=== PATIENT | female | born 1945 | race Caucasian/White ===

== ENCOUNTER 2021-05-24 13:14 | Emergency (ER) | payer OTHER, BC ==
--- OUTSIDE RECORDS SUMMARY | 2021-05-24 13:18 | XMS REPORT | Continuity of Care Document ---
:1945 Author Organization [facility] t Address [address] [place] [address] Care Team Providers Name Role Phone MELODY Attending Clinician Unavailable MELODY Admitting Clinician Unavailable Payers Payer Name Policy Type Policy Number Effective Date Expiration Date S ource Problems Condition Condition Condition Status Onset Resolution Last Treating Co mments Source Name Details Category Date Date Treatment Clinician Date Hyperlipid Hyperlipid Problem Active [facility]) Asthma Asthma Problem [facility] neck neck Problem Active [facility]) Cholecyste Cholecyste Problem Active [facility] ctomy [facility]omy [facility]) Maintenanc Maintenanc Problem Active [facility] - gastric gastric Memoria band band l (LUF/LI V/SA) Hypertensi Hypertensi Problem Active [facility] ve ve [facility] disorder disorder Mem[facility] a l (LUF/LI V/SA) Diabetes Diabetes Problem [facility]) Allergies, Adverse Reactions, Alerts Allergy Allergy Status Severity Reaction(s) Onset Inactive Treating Comm ents Source Name Type Date Date Clinician na MUHAMMAD Active 2018-11 [facility] ne 0-10 Clear 00:00: [place] 00 [facility] meperidi DA Active SV 2018-11 [facility] ne 0-07 Clear 00:00: [place] 00 [facility] meperidi DA Active MS 2017-11 [facility] ne 0-06 Clear 00:00: [place] 00 [facility] meperidi DA Active MS 2017-11 [facility] ne 0-02 Clear 00:00: [place] 00 [facility] meperidi DA Active MS 2016-11 [facility] ne 0-07 Clear 00:00: [place] 00 [facility] Medications Ordered Filled Start Stop Current Ordering Indication Dosage Frequency Signature Comments Components Source Medication Medication Date Date Medication? Clinician (SIG) Name Name bupropion bupropion Yes 75mg 1xD [facility] hydrochlori [facility] - de 75 MG de 75 MG Memoria Oral Tablet Oral Tablet l (LUF/LI V/SA) metformin metformin Yes 500mg 1xD [facility] hydrochlori hydrochlori L ukes - de 500 MG de 500 MG Memor ia Oral Tablet Oral Tablet l (LUF/LI V/SA) rosuvastati rosuvastati Yes 10mg 1xD [facility] n calcium n calcium [facility] - 10 MG Oral 10 MG Oral Mem oria Tablet Tablet l (LUF/LI V/SA) tramadol tramadol Yes 50mg [facility]xD [facility] hydrochlori hydrochlori L ukes - de 50 MG de 50 MG Memoria Oral Tablet Oral Tablet l (LUF/LI V/SA) alprazolam alprazolam Yes .5mg 2xD orally [address] [facility] 0.5 MG Oral 0.5 MG Oral times per [facility] - Tablet Tablet day as Memoria needed. l (LUF/LI V/SA) amlodipine amlodipine Yes 10mg 1xD orally [facility] 10 MG Oral 10 MG Oral daily Amy kes - Tablet Tablet Memoria l (LUF/LI V/SA) atenolol 50 atenolol 50 Yes 50mg 1xD orally [facility] MG Oral MG Oral daily [facility] - Tablet Tablet Memoria l (LUF/LI V/SA) bupropion bupropion Yes 75mg 1xD orally [facility] hydrochlori hydrochlori daily [facility] - de 75 MG de 75 MG Memoria Oral Tablet Oral Tablet l (LUF/LI V/SA) metformin metformin Yes 500mg 1xD orally [facility] hydrochlori hydrochlori daily [facility] - de 500 MG de 500 MG Memor ia Oral Tablet Oral Tablet l (LUF/LI V/SA) rosuvastati rosuvastati Yes 10mg 1xD orally [facility] n calcium n calcium daily Luke s - 10 MG Oral 10 MG Oral Mem oria Tablet Tablet l (LUF/LI V/SA) tramadol tramadol Yes 50mg 4xD orally [facility] hydrochlori hydrochlori every 6 [facility] - de 50 MG de 50 MG hours as Mem oria Oral Tablet Oral Tablet needed. l (LUF/LI V/SA) alprazolam alprazolam Yes .5mg [facility]xD [facility] 0.5 MG Oral 0.5 MG Oral L ukes - Tablet Tablet Memoria l (LUF/LI V/SA) amlodipine amlodipine Yes 10mg [facility]xD [facility] 10 MG Oral 10 MG Oral Aundrea es - Tablet Tablet Memoria l (F/LI V/SA) atenolol 50 atenolol 50 Yes 50mg [address]xD [facility] MG Oral MG Oral [facility] - Tablet Tablet Memoria l (LUF/LI V/SA) Immunizations Ordered Immunization Filled Immunization Date Status Commen ts Source Name Name tetanus toxoid, tetanus toxoid, 2021-05-04 Completed [facility] diphtheria reduced diphtheria 14:55:00 [facility] toxoid, and toxoid, and (F/IMAN/SA) acellular pertussis acellular pertussis vaccine, adsorbed vaccine, adsorbed Vital Signs Vital Name Observation Time Observation Value Comments Source Body Temperature 2021-05-04 14:30:00 96.5 [degF] [facility] (LUF/IMAN/SA) Pulse Rate 2021-05-04 14:30:00 84 /min [facility] (LUF/IMAN/SA) Respiratory Rate 2021-05-04 14:30:00 18 /min [facility] (F/IMAN/SA) O2% BldC Oximetry 2021-05-04 14:30:00 97 % [facility] (LUF/IMAN/SA) BP Systolic 2021-05-04 14:30:00 160 mm[Hg] [facility] (LUF/IMAN/SA) BP Diastolic 2021-05-04 14:30:00 75 mm[Hg] [facility] (LUF/IMAN/SA) Height 2021-05-04 14:30:00 68 [in_i] [facility] (LUF/IMAN/SA) Weight 2021-05-04 14:30:00 229 [lb_av] [facility] (LUF/IMAN/SA) BMI (Body Mass Index) 2021-05-04 14:30:00 35.1 kg/m2 [facility] (LUF/IMAN/SA) Procedures This patient has no known procedures. Encounters Start End Encounter Admission Attending Care Care Encounter Source Date/Time Date/Time Type Type Clinicians Facility Department ID 2021-05-14 2021-05-14 OTHER [facility] [id number] [facility] [address] 12:35:00 23:59:00 SPECIFIED FRESNO Luke s - DISORDERS [place], [facility] [address] (LUF/LI A[address], V/SA) [place] [id number] 2021-05-14 2021-05-14 Inpatient [facility] [id number] [facility] St 00:00:00 00:00:00 FRESNO [id number] [facility], [id number] Memor ia [id number] (LUF/LI AVE, V/SA) [place] [id number] 2021-05-14 2021-05-14 Inpatient [facility] [id number] [facility] St 00:00:00 00:00:00 FRESNO [id number] [facility], [id number] Memor ia [id number] (LUF/LI AVE, V/SA) [place] [id number] 2021-05-14 2021-05-14 Inpatient [facility] [id number] 00:00:00 00:00:00 FRESNO [id number] [facility], [id number] Memor ia [id number] [facility] ([facility]/ AVE, V/[place]) [place] [address] 2021-05-04 2021-05-04 PROC&TX 1 MELODY, [facility] [id number] [facility] 14:30:00 17:00:00 NOT LEANNAI CRI[place]OFER [place] Amy kes - CARRIED , [address] Memoria OUT PT EAST [facility] ([facility] V/SA) [place] [address] 2021-05-04 2021-05-04 Inpatient [facility] [id number] [facility] 00:00:00 00:00:00 [place] [id number] [facility] - , 511 [id number] Memor [facility] [id number] [facility] ([facility] V/SA) [place] [address] 2021-05-04 2021-05-04 Inpatient [facility] [id number] [facility] 00:00:00 00:00:00 [place] [id number] [facility] - , 511 [id number] Memor ia [facility] [id number] [facility] ([facility] V/SA) [place] [address] Results Test Description Test Test Comments Results Result Sour e Time Comments MRI BRAIN WO/W 2021-05- If patient is CONT 15 claustrophobic 00:47:53 , [facility] ([facility]/IMAN/SA)Name: red VELA MARIFER Angie : additional 1945 Sex: instructions. F Procedure: MRI BRAIN WO/W CONTOrder Date: 05/14/2021 4:15 PMOrdering Provider: RUPERTO Chavira Indication: [id number]: Disorder of brainComparison: May 04, 2021Technique: Multiplanar, multisequence images of the brain were obtained beforeand after administration of intravenous gadolinium based contrast.Findings:There is an intensely, homogeneously enhancing mass centered within the mesialleft temporal lobe and measures 3.2 x 2.2 x 2.2 cm. It is intimately associatedwith the left leaf of the tentorium cerebelli which is asymmetrically thickened.There is mass effect resulting in adjacent vasogenic edema of the left temporallobe. Portion of the left temporal horn is effaced. 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 Muchless likely differential considerations are primary intra-axial neoplasm ormetastatic disease. Localized mass effect and resulting vasogenic edema in theleft temporal lobe but no midline shift or hydrocephalus.Neurosurgical consultation is recommended.This final report was electronically signed by Dr Martha Nash MD 17:02 PMDictated By: MICHELA NASHKDate: 05/14/2021 19:02 XR TOES MIN 2 2021-05- VIEWS 04 16:19:48 [facility] ([facility]/SA)Name: MARIFER VELA : 1945 Sex: F Procedures: XR TOES MIN 2 VIEWSExam Date: 05/04/2021 2:48 PMOrdering Physician: JEREMY OLIVER .Clinical Indication: [id number]: Pain of toe of right footComparison: None available.Findings: Frontal, oblique, and lateral radiographs of the right toes.Bones: No fracture or aggressive osseous lesion.Joint alignment: No evident dislocation.Articular surfaces and joint spaces: Degenerative change of the interphalangealjoints.Soft tissues: No significant abnormality.Impression: No radiographically apparent fracture. If clinically concerned forradiographically occult fracture, then consider immobilization with repeatradiographs in 7-10 days.This final report was electronically signed by Dr Micaela Monte MD05/04/2021 4:14 PMDictated By: MICAELA HANSONDate: 05/04/2021 16:14 CT HEAD W/O 2021-05- CONTRAST 04 16:06:37 [facility]Name: MARIFER VELA : 1945 Sex: F Procedures: CT HEAD W/O CONTRAST, CT CERVICAL SPINE W/O CONTRASTExam Date: 05/04/2021 2:48 PMOrdering Physician: JEREMY OLIVER .Clinical Indication: : Unspecified [id number]: Injury of headComparison: None available.TECHNIQUE: Using a helical scanner, spiral axial imaging of the brain wasobtained from the skull base to vertex without intravenous contrast. Unenhancedaxial, coronal, and sagittal CT images of the cervical spine are also examined.This exam was performed according to the our departmental dose-optimizationprogram which includes automated exposure control, adjustment of the mA and/orkV according to patient size and/or use of iterative reconstruction techniques.FINDINGS:Head:Hem orrhage: No intraparenchymal or extra-axial hemorrhage.Masses: Peripherally calcified 2.8 x 1.9 cm mass of the inferior left parietallobe with adjacent hypoattenuation possibly representing cytotoxic edema.Brain: Narvaez-white matter differentiation is normal. No mass effect or midlineshift. No sulcal effacement.Ventricles: Normal.Vascular: Normal.Sinuses: Normal.Orbits: No significant abnormality.Bones: No fracture or aggressive osseous lesion.Cervical spine:Bones: No fracture or aggressive osseous lesion. The dens is intact. Lateralmasses are normally aligned. No significant prevertebral soft tissue thickening.Postsurgical change status post anterior cervical spine fusion of C5-C7. Noapparent orthopedic hardware complication.Mild degenerative changes of the cervical spine are noted with small anteriordisc osteophyte complexes. Vertebral body heights and intervertebral disc spacesare preserved. Mild facet arthropathy and mild uncovertebral degenerativechange.Vascular: Atherosclerotic calcific plaque at the carotid bulbs. The remainderof the examination is limited without intravenous contrast; however, no acuteabnormality is demonstrated.Soft tissues: No significant abnormalities.Lung apices: No pneumothorax. No significant CT abnormality.IMPRESSION:1. No significant CT evidence of acute traumatic intracranial or cervical spineinjury.2. Peripherally calcified 2.8 x 1.9 cm mass of the inferior left parietal lobewith adjacent hypoattenuation possibly representing cytotoxic edema. Considerfurther characterization with contrast-enhanced MRI.3. Chronic findings, as above.This final report was electronically signed by Dr Micaela Monte MD05/04/2021 4:00 PMDictated By: MICAELA HANSONDate: 05/04/2021 16:00 CT CERVICAL 2021-05- SPINE W/O 04 CONTRAST 16:06:18 [facility]/SA)Name: MARIFER VELA : 1945 Sex: F Procedures: CT HEAD W/O CONTRAST, CT CERVICAL SPINE W/O CONTRASTExam Date: 05/04/2021 2:48 PMOrdering Physician: JEREMY OLIVER .Clinical Indication: : Unspecified [id number]: Injury of headComparison: None available.TECHNIQUE: Using a helical scanner, spiral axial imaging of the brain wasobtained from the skull base to vertex without intravenous contrast. Unenhancedaxial, coronal, and sagittal CT images of the cervical spine are also examined.This exam was performed according to the our departmental dose-optimizationprogram which includes automated exposure control, adjustment of the mA and/orkV according to patient size and/or use of iterative reconstruction techniques.FINDINGS:Head:Hem orrhage: No intraparenchymal or extra-axial hemorrhage.Masses: Peripherally calcified 2.8 x 1.9 cm mass of the inferior left parietallobe with adjacent hypoattenuation possibly representing cytotoxic edema.Brain: Narvaez-white matter differentiation is normal. No mass effect or midlineshift. No sulcal effacement.Ventricles: Normal.Vascular: Normal.Sinuses: Normal.Orbits: No significant abnormality.Bones: No fracture or aggressive osseous lesion.Cervical spine:Bones: No fracture or aggressive osseous lesion. The dens is intact. Lateralmasses are normally aligned. No significant prevertebral soft tissue thickening.Postsurgical change status post anterior cervical spine fusion of C5-C7. Noapparent orthopedic hardware complication.Mild degenerative changes of the cervical spine are noted with small anteriordisc osteophyte complexes. Vertebral body heights and intervertebral disc spacesare preserved. Mild facet arthropathy and mild uncovertebral degenerativechange.Vascular: Atherosclerotic calcific plaque at the carotid bulbs. The remainderof the examination is limited without intravenous contrast; however, no acuteabnormality is demonstrated.Soft tissues: No significant abnormalities.Lung apices: No pneumothorax. No significant CT abnormality.IMPRESSION:1. No significant CT evidence of acute traumatic intracranial or cervical spineinjury.2. Peripherally calcified 2.8 x 1.9 cm mass of the inferior left parietal lobewith adjacent hypoattenuation possibly representing cytotoxic edema. Considerfurther characterization with contrast-enhanced MRI.3. Chronic findings, as above.This final report was electronically signed by Dr Micaela Monte MD05/04/2021 4:00 PMDictated By: MICAELA HANSONDate: 05/04/2021 16:00 GLUBED 2019-08-10 14:25:00 Test Item Value Reference Range Interpretation Comme nts GLUBED (test code = GLUBED) 137 MG/DL 70-110 H Performed by certified rotary envelope machine operator at [facility] - XR FLUOROSCOPY 0-60 [id number] 14:11:00 FAX: Nick Deluca MD [phone] [place]: St: REG Name: MARIFER VELA [facility] : 1945 Age/S: 73/F [address] [place] [address] Unit#: [id number] Loc: [place] [address] Phys: Nick Jimenez MD Acct: [id number] Dis Date: Status: REG [facility] PHONE #: [phone] Exam Date: 08/10/2019 1406 FAX #: [phone] Reason: KIDNEY STONES, HYDRONEPHROSIS EXAMS: CPT CODE: [id number] XR FLUOROSCOPY 0-60 MIN 65973 Study: - XR FLUOROSCOPY 0-60 MIN 08/10/2019 2:02 PM Patient Name: MARIFER VELA MR: [id number] DATE: 08/10/2019 2:02 PM : 1945; Age: 73 years y/o Female Ordering Physician: Nick Jimenez MD Clinical Indication: KIDNEY STONES, HYDRONEPHROSIS Intraprocedural fluoroscopy was provided by the Department of Radiology. Any images obtained were interpreted by the surgeon intraoperatively. Fluoroscopy time: 32 seconds Reference Air Kerma: 16.3 mGy SL: [id number] at 1411 Reported and signed by: Colin Nash D.O. CC: Nick Jimenez MD Technologist: RT [place](R) Trnscrd Date/Time/By: 08/10/2019 (135) : By: [email or web address] Orig Print D/T: S: 08/10/2019 (2401) PAGE 1 Signed Report- XR FLUOROSCOPY 0-60 MIN 2019-08-10 14:11:00 FAX: Nick Deluca MD [phone] [place]: St: [facility] Name: MARIFER VELA [facility] : 1945 Age/S: 73/F [address] [place] [address] Unit#: [id number] Loc: [place] [address] Phys: Nick Jimenez MD Acct: [id number] Dis Date: Status: [facility] PHONE #: [phone] Exam Date: 08/10/2019 1406 FAX #: [phone] Reason: KIDNEY STONES, HYDRONEPHROSIS EXAMS: CPT CODE: [id number] XR FLUOROSCOPY 0-60 MIN 20753 Study: - XR FLUOROSCOPY 0-60 MIN 08/10/2019 2:02 PM Patient Name: MARIFER VELA MR: [id number] DATE: 08/10/2019 2:02 PM : 1945; Age: 73 years y/o Female Ordering Physician: Nick Jimenez MD Clinical Indication: KIDNEY STONES, HYDRONEPHROSIS Intraprocedural fluoroscopy was provided by the Department of Radiology. Any images obtained were interpreted by the surgeon intraoperatively. Fluoroscopy time: 32 seconds Reference Air Kerma: 16.3 mGy SL: [id number] at 1411 Reported and signed by: Colin Nash D.O. CC: Nick Jimenez MD Technologist: RT [place](R) Trnscrd Date/Time/By: 08/10/2019 (141) : By: [email or web address] Orig Print D/T: S: 08/10/2019 (1183) PAGE 1 Signed [id number] 12:12:00 Test Item Value Reference Range Interpretation Comments GLUBED (test code = 99 MG/DL 70-110 N Performe d by certified GLUBED) rotary envelope machine operator at [facility] BASIC METABOLIC [id number] 16:44:00 Test Item Value Reference Range Interpretation Comments SODIUM (test code = 141 mEq/L 134-147 N NA) POTASSIUM (test code = 4.6 mEq/L 3.4-5.0 N SPECI MEN 2+ K) HEMOLYZED.Resul ts known to be adv ersely affected by hem olysis are: Potass ium Magnesium LDH Phosphorus CHLORIDE (test code = 106 mEq/L 100-108 N CL) CARBON DIOXIDE (test 29 mEq/L 21-33 N code = CO2) ANION GAP (test code = 11 0-20 N GAP) GLUCOSE (test code = 84 mg/dL 70-110 N GLU) BLOOD UREA NITROGEN 9 mg/dL 7-18 N (test code = BUN) GLOMERULAR FILTRATION 61.5 70-80 L Units of measure = RATE (test code = GFR) ml/mi n/1.73 m2 CREATININE (test code 0.9 mg/dL 0.6-1.3 N = CREAT) CALCIUM (test code = 10.0 mg/dL 8.0-10.5 N CA) BASIC METABOLIC [id number] 16:41:00 Test Item Value Reference Range Interpretation Comments SODIUM (test code = 141 mEq/L 134-147 N NA) POTASSIUM (test code = 4.6 mEq/L 3.4-5.0 N SPECI MEN 2+ K) HEMOLYZED.Resul ts known to be adv ersely affected by hem olysis are: Potass ium Magnesium LDH Phosphorus CHLORIDE (test code = 106 mEq/L 100-108 N CL) CARBON DIOXIDE (test 29 mEq/L 21-33 N code = CO2) ANION GAP (test code = 11 0-20 N GAP) GLUCOSE (test code = 84 mg/dL 70-110 N GLU) BLOOD UREA NITROGEN 9 mg/dL 7-18 N (test code = BUN) GLOMERULAR FILTRATION 70-80 RATE (test code = GFR) CREATININE (test code mg/dL 0.6-1.3 = CREAT) CALCIUM (test code = 10.0 mg/dL 8.0-10.5 N CA) PROTHROMBIN [id number] 16:38:00 Test Item Value Reference Range Interpretation Comments PROTHROMBIN TIME 12.3 SECONDS 9.3-12.9 N PATIENT (test code = PTP) INTERNATIONAL NORMAL 1.1 0.8-1.2 N TARGET RATIO (test code = INR BY IN DICATION INR) Indication INR1. Prophyl axis of venous thrombos is 2.0 - 3. 0 (orthopedic yeison rafael), Prophylaxis of venous thrombos is (other than hig h-risk surgery), Shelli tment of Deep Vein Thrombosis/Pulm onary Embolism, Preve ntion of systemic emb olism - Tissue heart va lves, Acute Myocardia l Infarction (to prevent systemic embo lism), Valvular heart disease, Atri al Fibrillation, Bileaflet mecha nical valve in aortic position.2. Mec hanical prosthetic valv es (high risk), 2.5 - 3.5 Presence of Lupus Anticoagu lant or Antiphospholi pid Antibodies, Pre vention of systemic e mbolism - Acute Myocard ial Infarction (t o prevent recurre nt infarct). THROMBOPLASTIN TIME [id number] 16:38:00 Test Item Value Reference Range Interpretation Comments THROMBOPLASTIN TIME 36.7 Seconds 25.0-39.5 N Ther apeutic PARTIAL (test code = Range: 50.4 - 88.3 PTT) Seconds Effective 02/14/2019 CBC W/AUTO [id number] 16:32:00 Test Item Value Reference Range Interpretation Comments WHITE BLOOD CELL (test code = 5.84 x10 3/uL 4.5-11.0 N WBC) RED BLOOD CELL (test code = 5.38 x10 6/uL 3.54-5.02 H RBC) HEMOGLOBIN (test code = HGB) 14.7 g/dL 11.0-15.0 N HEMATOCRIT (test code = HCT) 47.2 % 33.0-45.0 H MEAN CELL VOLUME (test code = 87.7 fL 81.0-99.0 N MCV) MEAN CELL HGB (test code = MCH) 27.3 pg 27.0-33.0 N MEAN CELL HGB CONCETRATION 31.1 g/dL 33.0-37.0 L (test code = MCHC) RED CELL DISTRIBUTION WIDTH CV 13.5 % 11.5-14.5 N (test code = RDW) RED CELL DISTRIBUTION WIDTH SD 43.8 fL 37.0-54.0 N (test code = RDW-SD) PLATELET COUNT (test code = 136 x10 3/uL 150-400 L PLT) MEAN PLATELET VOLUME (test code 12.4 fL 7.0-9.0 H = MPV) NEUTROPHIL % (test code = NT%) 73.0 % 56.0-77.0 N IMMATURE GRANULOCYTE % (test 0.2 % 0.0-2.0 N code = IG%) LYMPHOCYTE % (test code = LY%) 15.6 % 14.0-32.0 N MONOCYTE % (test code = MO%) 9.1 % 4.8-9.0 H EOSINOPHIL % (test code = EO%) 1.4 % 0.3-3.7 N BASOPHIL % (test code = BA%) 0.7 % 0.0-2.0 N NUCLEATED RBC % (test code = 0.0 % 0-0 N NRBC%) NEUTROPHIL # (test code = NT#) 4.27 x10 3/uL 2.0-7.6 N IMMATURE GRANULOCYTE # (test 0.01 x10 3/uL 0.00-0.03 N code = IG#) LYMPHOCYTE # (test code = LY#) 0.91 x10 3/uL 1.0-3.8 L MONOCYTE # (test code = MO#) 0.53 x10 3/uL 0.1-0.8 N EOSINOPHIL # (test code = EO#) 0.08 x10 3/uL 0.0-0.2 N BASOPHIL # (test code = BA#) 0.04 x10 3/uL 0.0-0.2 N NUCLEATED RBC # (test code = 0.00 x10 3/uL 0.0-0.1 N NRBC#) MANUAL DIFF REQUIRED (test code NO = MDIFF) URINALYSIS [id number] 16:23:00 Test Item Value Reference Range Interpretation Comments UA COLOR (test code = COLU) MARY YEL/STRAW A UA APPEARANCE (test code = APPU) CLOUDY CLEAR A UA GLUCOSE DIPSTICK (test code = NEGATIVE NEGATIVE DGLUU) UA BILIRUBIN DIPSTICK (test code NEGATIVE NEGATIVE = BILU) UA KETONE DIPSTICK (test code = NEGATIVE NEGATIVE KETU) UA SPECIFIC GRAVITY (test code = 1.018 1.005-1.030 N SGU) UA BLOOD DIPSTICK (test code = 3+ NEGATIVE A RAJAN) UA PH DIPSTICK (test code = GIA) 5.0 5.0-7.0 N UA PROTEIN DIPSTICK (test code = 2+ NEGATIVE A PROU) UA UROBILINIOGEN DIPSTICK (test 0.2 mg/dL 0.2-1.0 code = URO) UA NITRITE DIPSTICK (test code = NEGATIVE NEGATIVE THALAI) UA LEUKOCYTE ESTERASE DIPSTICK 3+ NEGATIVE A (test code = LEUU) UA RBC (test code = RBCU) >50 RBC/HPF 0-3 A UA WBC NO REFLEX (test code = >50 WBC/HPF 0-3 A WBCUCL) UA BACTERIA (test code = BACU) TRACE /HPF NONE SEEN UA SQUAMOUS CELLS (test code = 0-5 /HPF NONE SEEN SQU) UA CALCIUM OXALATE CRYSTALS (test 2+ /HPF NONE SEEN A code = CAOXU) UA MUCUS (test code = MUCU) 4+ /LPF NONE SEEN A - XR CHEST 2 [id number] 15:42:00 FAX: Nick Deluca MD [phone] [place]: St: PRE Name: MANISHA VELA [facility] Bhanu Chapman : 1945 Age/S: 73/F [address] [place] [address] Unit#: [id number] Loc: [place] [address] Phys: Nick Jimenez MD Acct: [id number] Dis Date: Status: PRE SDC PHONE #: [phone] Exam Date: 08/07/2019 1540 FAX #: [phone] Reason: PRE-OP CYSTOSCOPY EXAMS: CPT CODE: [id number] XR CHEST 2 V 98946 Patient: MANISHA VELA. : 1945; Age: 73 years; Gender: Female. MR: [id number]. Ordering physician: Nick Jimenez MD. CHEST 2 VIEWS: HISTORY: Kidney stones, preoperative evaluation for cystoscopy. COMPARISON: None. FINDINGS: Frontal and lateral views of the chest were obtained. The lungs are clear bilaterally. The cardiomediastinal silhouette and pulmonary vasculature are unremarkable. The partially visualized upper abdomen is unremarkable. IMPRESSION: No acute disease in the chest. SL: [id number] at 4348 Reported and signed by: Adam Oneil M.D. CC: Nick Jimenez MD Technologist:RT Selma(Janet) Trnscrd Date/Time/By: 08/07/2019 (6086) : By:[email or web address] Orig Print D/T: S: 08/07/2019 (8085) PAGE 1 Signed Report- XR CHEST 2 [id number] 15:42:00 FAX: Nick Deluca MD [phone] [place]: St: [facility] Name: MARIFER VELA [facility] : 1945 Age/S: 73/F [address] [place] [address] Unit#: [id number] Loc: [place] [address] Phys: Nick Jimenez MD Acct: [id number] Dis Date: Status: [facility] PHONE #: [phone] Exam Date: 08/07/2019 1540 FAX #: [phone] Reason: PRE-OP CYSTOSCOPY EXAMS: CPT CODE: [id number] XR CHEST 2 V 00481 Patient: MANISHA VELA. : 1945; Age: 73 years; Gender: Female. MR: [id number]. Ordering physician: Nick Jimenez MD. CHEST 2 VIEWS: HISTORY: Kidney stones, preoperative evaluation for cystoscopy. COMPARISON: None. FINDINGS: Frontal and lateral views of the chest were obtained. The lungs are clear bilaterally. The cardiomediastinal silhouette and pulmonary vasculature are unremarkable. The partially visualized upper abdomen is unremarkable. IMPRESSION: No acute disease in the chest. SL: [id number] at 1548 Reported and signed by: Adam Oneil M.D. CC: Nick Jimenez MD Technologist:RT Selma(Janet) Trnscrd Date/Time/By: 08/07/2019 (1610) : By:[email or web address] Orig Print D/T: S: 08/07/2019 (0423) PAGE 1 Signed Report- XR UROGRAM [id number] 11:45:00 FAX: Ricardo Wheeler [phone] [place]: St: DIS FAX: Nick Deluca MD [phone] Name: MARIFER VELA [facility] : 1945 Age/S: 73/F [address] [place] [address] Blvd Unit #: [id number] Loc: G.[address] [place] [address] Phys: Nick Jimenez MD Acct: [id number] Dis Date: [id number] Status: DIS IN PHONE #: [phone] Exam Date: 07/11/2019804 FAX #: [phone] Reason: LT RENAL STONE EXAMS: CPT CODE: [id number] XR UROGRAM RETRO 46043 Patient: MARIFER VELA. : 1945; Age: 73 years; Gender: Female. MR: [id number]. Ordering physician: Nick Jimenez MD. X-ray of retrograde urogram. HISTORY: Obstructing left ureteral calculus. COMPARISON: CT abdomen and pelvis 07/10/2019. FINDINGS: Fluoroscopic assistance was provided. 12 images were submitted demonstrating wire cannulization with subsequent contrast opacification of left collecting system. Filling defect noted within the left renal pelvis representing either calculus versus air bubble. Left ureteral stent was then placed. Calcified fibroid noted within the right hemipelvis. Please refer to intraoperative report for further details. Fluoroscopic time of 1 minute 4 seconds. Reference air kerma: 36.3 mGy. SL: [id number] at 1145 Reported and signed by: Adam Oneil M.D. 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 [facility] - XR CHEST 1 [id number] 07:06:00 FAX: Ricardo Wheeler [phone] [place]: St: ADM Name: MARIFER VELA [facility] : 1945 Age/S: 73/F [address] [place] [address] Unit#: [id number] Loc: G.[facility] [place] [address] Phys: Ricardo Galvez Acct: [id number] Dis Date: Status: ADM IN PHONE #: [phone] Exam Date: 07/11/2019 06 FAX #: [phone] Reason: PRE OP PROTOCOL EXAMS: CPT CODE: [id number] XR CHEST 1 V 41531 EXAM: CR, XR chest one view: 07/11/2019, 0615 hours HISTORY: PRE OP PROTOCOL TECHNIQUE: 1 view of the chest. COMPARISON: 08/02/2018 FINDINGS: Trachea is midline. Heart is normal in size. Pulmonary vascularity is unremarkable. There is no airspace consolidation, pleural effusion or pneumothorax. Osseous structures are stable. IMPRESSION: No acute cardiopulmonary disease seen. SL: [[id number]] at 0706 Reported and signed by: Diomedes Ahn M.D. 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 [facility] BASIC METABOLIC [id number] 04:29:00 Test Item Value Reference Range Interpretation Comments SODIUM (test code = NA) 142 mEq/L 134-147 N POTASSIUM (test code = 4.0 mEq/L 3.4-5.0 N K) CHLORIDE (test code = 107 mEq/L 100-108 N CL) CARBON DIOXIDE (test 31 mEq/L 21-33 N code = CO2) ANION GAP (test code = 8 0-20 N GAP) GLUCOSE (test code = 93 mg/dL 70-110 N GLU) BLOOD UREA NITROGEN 15 mg/dL 7-18 N (test code = BUN) GLOMERULAR FILTRATION 70.5 70-80 N Units of measure = RATE (test code = GFR) ml/mi n/1.73 m2 CREATININE (test code = 0.8 mg/dL 0.6-1.3 N CREAT) CALCIUM (test code = 9.0 mg/dL 8.0-10.5 N CA) PROTHROMBIN [id number] 04:19:00 Test Item Value Reference Range Interpretation Comments PROTHROMBIN TIME 13.3 SECONDS 9.3-12.9 H PATIENT (test code = PTP) INTERNATIONAL NORMAL 1.2 0.8-1.2 N TARGET RATIO (test code = INR BY IN DICATION INR) Indication INR1. Prophyl axis of venous thrombos is 2.0 - 3. 0 (orthopedic yeison rafael), Prophylaxis of venous thrombos is (other than hig h-risk surgery), Shelli tment of Deep Vein Thrombosis/Pulm onary Embolism, Preve ntion of systemic emb olism - Tissue heart va lves, Acute Myocardia l Infarction (to prevent systemic embo lism), Valvular heart disease, Atri al Fibrillation, Bileaflet mecha nical valve in aortic position.2. Mec hanical prosthetic valv es (high risk), 2.5 - 3.5 Presence of Lupus Anticoagu lant or Antiphospholi pid Antibodies, Pre vention of systemic e mbolism - Acute Myocard ial Infarction (t o prevent recurre nt infarct). THROMBOPLASTIN TIME [id number] 04:19:00 Test Item Value Reference Range Interpretation Comments THROMBOPLASTIN TIME 32.7 Seconds 25.0-39.5 N Ther apeutic PARTIAL (test code = Range: 50.4 - 88.3 PTT) Seconds Effective 02/14/2019 - CT ABD PELVIS W/O [id number] 13:54:00 Name: MARIFER VELA [facility] Bhanu Chapman : 1945 Age/S: 73 / F [address] [place] [address] Unit #: [id number] Loc: [place] [id number] Phys: Saul Garcia MD Acct: [id number] Dis Date: Status: REG ER PHONE #: [phone] Exam Date: 07/10/2019 1301 FAX #: [phone] Reason: L FLANK PAIN EXAMS: CPTCODE: [id number] CT ABD PELVIS W/O CONT 25584 Patient: MARIFER VELA. : 1945; Age: 73 years; Gender: Female. MR: [id number]. Ordering physician: Saul Garcia MD. PROCEDURE: CT ABDOMEN AND PELVIS WITHOUT CONTRAST INDICATION: Left flank pain. COMPARISON: CT abdomen and pelvis 08/06/2018. TECHNIQUE: Helical imaging was performed diaphragm through the symphysis with multiplanar reconstructions. All CT scans at this location are performed using dose optimization technique as appropriate to a performed exam including the following: -Automated exposure control. -Adjustment of mA and/or KV according to patient's size (this includes techniques or standardized protocols for targeted exams where dose is matched to indication/reason for exam; i.e. extremities or head). -Use of iterative reconstruction technique. -Total DLP: 674.49 mGy-cm IV CONTRAST: None. GI CONTRAST: None. FINDINGS: This examination is limited for the evaluation of solid organs and vascular structures due to lack of intravenous contrast. LOWER CHEST: Inferolateral right middlelobe calcified granuloma noted. Several bibasilar 3 mm or less pulmonary nodules noted. SOLID ORGANS: 1.3 x 1 cm obstructing calculus noted in the left ureteropelvic junctioncausing moderate left pelvocaliectasis and perinephric inflammatory change. Bilateral punctate 1-2 mm nonobstructing renal calculi are also present. No evidence of obstructive righturopathy. Gallbladder is surgically absent. Liver, spleen, pancreas and adrenalglands are unremarkable. BOWEL: Gastric band noted. No bowel obstruction, colitis or diverticulitis. PAGE 1 Signed Report (CONTINUED) Name: MARIFER VELA [facility] [place] : 1945 Age/S: 73 / F [address] [place] [address] Blvd Unit #: [id number] Loc: [place] [address] Phys: Saul Garcia MD Acct: [id number] Dis Date: Status: REG ER PHONE #: [phone] Exam Date: 07/10/2019 1301 FAX #: [phone] Reason: L FLANK PAIN EXAMS: CPT CODE: [id number] CT ABD PELVIS W/O CONT 01398 <Continued> PERITONEUM: No free intraperitoneal fluid or air. RETROPERITONEUM: No adenopathy. The aorta is normal. PELVIS: Bladder is normal in appearance. Calcified fibroids noted. MUSCULOSKELETAL: The skeleton is intact. IMPRESSION: 1. 1.3 x 1 cm obstructing calculus in the left ureteropelvic junction causing moderate left pelvocaliectasis and perinephric inflammatory change. Bilateral punctate 1-2 mm nonobstructing renal calculi are also present. 2. Calcified fibroids. 3. Several bibasilar 3 mm or less pulmonary nodules. SL: [id number] at 6975 Reported and signed by: Adam Oneil M.D. CC: Technologi st:Analia Roman RT(R)(CT) CTDI: DLP: Trnscb Date/Time: 07/10/2019 (8637) [email or web address] Orig Print D/T: S: 07/10/2019 (8163) PAGE 2 Signed ReportHEPATIC FUNCTION PANEL 2019-07-10 12:36:00 Test Item Value Reference Range Interpretation Comments TOTAL PROTEIN (test code = PROT) 7.3 g/dL 6.4-8.2 N ALBUMIN (test code = ALB) 3.60 g/dL 3.4-5.0 N BILIRUBIN TOTAL (test code = BILT) 0.5 MG/DL <1.5 N BILIRUBIN DIRECT (test code = 0.20 MG/DL 0.0-0.30 N BILD) BILIRUBIN INDIRECT (test code = 0.30 MG/DL BILIND) SGOT/AST (test code = AST) 37 IUnit/L 15-37 N SGPT/ALT (test code = ALT) 38 IUnit/L 15-65 N ALKALINE PHOSPHATASE TOTAL (test 96 IUnit/L 20-125 N code = ALKP) [id number] 12:36:00 Test Item Value Reference Range Interpretation Comments LIPASE (test code = LIP) 153 IUnit/L 73-393 N CBC W/AUTO [id number] 12:27:00 Test Item Value Reference Range Interpretation Comments WHITE BLOOD CELL (test code = 9.00 x10 3/uL 4.5-11.0 WBC) RED BLOOD CELL (test code = 4.96 x10 6/uL 3.54-5.02 N RBC) HEMOGLOBIN (test code = HGB) 13.7 g/dL 11.0-15.0 N HEMATOCRIT (test code = HCT) 43.5 % 33.0-45.0 N MEAN CELL VOLUME (test code = 87.7 fL 81.0-99.0 N MCV) MEAN CELL HGB (test code = MCH) 27.6 pg 27.0-33.0 N MEAN CELL HGB CONCETRATION 31.5 g/dL 33.0-37.0 L (test code = MCHC) RED CELL DISTRIBUTION WIDTH CV 13.5 % 11.5-14.5 N (test code = RDW) RED CELL DISTRIBUTION WIDTH SD 43.4 fL 37.0-54.0 N (test code = RDW-SD) PLATELET COUNT (test code = 153 x10 3/uL 150-400 N PLT) MEAN PLATELET VOLUME (test code 11.4 fL 7.0-9.0 H = MPV) NEUTROPHIL % (test code = NT%) 78.5 % 56.0-77.0 H IMMATURE GRANULOCYTE % (test 0.3 % 0.0-2.0 N code = IG%) LYMPHOCYTE % (test code = LY%) 13.8 % 14.0-32.0 L MONOCYTE % (test code = MO%) 6.7 % 4.8-9.0 N EOSINOPHIL % (test code = EO%) 0.4 % 0.3-3.7 N BASOPHIL % (test code = BA%) 0.3 % 0.0-2.0 N NUCLEATED RBC % (test code = 0.0 % 0-0 N NRBC%) NEUTROPHIL # (test code = NT#) 7.06 x10 3/uL 2.0-7.6 N IMMATURE GRANULOCYTE # (test 0.03 x10 3/uL 0.00-0.03 N code = IG#) LYMPHOCYTE # (test code = LY#) 1.24 x10 3/uL 1.0-3.8 N MONOCYTE # (test code = MO#) 0.60 x10 3/uL 0.1-0.8 N EOSINOPHIL # (test code = EO#) 0.04 x10 3/uL 0.0-0.2 N BASOPHIL # (test code = BA#) 0.03 x10 3/uL 0.0-0.2 N NUCLEATED RBC # (test code = 0.00 x10 3/uL 0.0-0.1 N NRBC#) MANUAL DIFF REQUIRED (test code NO = MDIFF) CHEMISTRY 8 [id number] 12:09:00 Test Item Value Reference Range Interpretation Comments ISTAT-SODIUM (test code = NAP) MMOL/L 134-147 ISTAT-POTASSIUM (test code = KP) MMOL/L 3.4-5.0 ISTAT-CHLORIDE (test code = CLP) MMOL/L 100-108 ISTAT CARBON DIOXIDE (test code = mmol/L 21-33 N ISTAT-CO2) ISTAT CALCIUM IONIZED (test code = MG/DL 1.12-1.32 ISTAT-CATALINA) ISTAT-GLUCOSE (test code = GLUP) MG/DL 70-110 H ISTAT-BUN (test code = BUNP) MG/DL 7-18 N BEDSIDE CREATININE (test code = MG/DL 0.6-1.3 N CREATBED) GLOMERULAR FILTRATION RATE POC 87 ML/MIN (test code = GFRBED) CHEMISTRY 8 [id number] 12:09:00 Test Item Value Reference Range Interpretation Comments ISTAT-SODIUM (test 141 MMOL/L 134-147 N code = NAP) ISTAT-POTASSIUM (test 4.2 MMOL/L 3.4-5.0 N code = KP) ISTAT-CHLORIDE (test 103 MMOL/L 100-108 N Perform ed by code = CLP) certified opera tor at [facility] ISTAT CARBON DIOXIDE 26.0 mmol/L 21-33 N (test code = ISTAT-CO2) ISTAT CALCIUM IONIZED 1.19 MG/DL 1.12-1.32 N (test code = ISTAT-CATALINA) ISTAT-GLUCOSE (test 150 MG/DL 70-110 H code = GLUP) ISTAT-BUN (test code = 13 MG/DL 7-18 N BUNP) BEDSIDE CREATININE 0.7 MG/DL 0.6-1.3 N (test code = CREATBED) GLOMERULAR FILTRATION 87 ML/MIN RATE POC (test code = GFRBED) URINALYSIS [id number] 12:08:00 Test Item Value Reference Range Interpretation Comments UA COLOR (test code = COLU) YELLOW YEL/STRAW UA APPEARANCE (test code = CLOUDY CLEAR A APPU) UA GLUCOSE DIPSTICK (test code NEGATIVE NEGATIVE = DGLUU) UA BILIRUBIN DIPSTICK (test NEGATIVE NEGATIVE code = BILU) UA KETONE DIPSTICK (test code = NEGATIVE NEGATIVE KETU) UA SPECIFIC GRAVITY (test code 1.019 1.005-1.030 N = SGU) UA BLOOD DIPSTICK (test code = 3+ NEGATIVE A RAJAN) UA PH DIPSTICK (test code = 5.0 5.0-7.0 N GIA) UA PROTEIN DIPSTICK (test code 1+ NEGATIVE A = PROU) UA UROBILINIOGEN DIPSTICK (test 0.2 mg/dL 0.2-1.0 code = URO) UA NITRITE DIPSTICK (test code NEGATIVE NEGATIVE = THALIA) UA LEUKOCYTE ESTERASE DIPSTICK 1+ NEGATIVE A (test code = LEUU) UA RBC (test code = RBCU) 11-20 RBC/HPF 0-3 UA WBC NO REFLEX (test code = 21-50 WBC/HPF 0-3 A WBCUCL) UA BACTERIA (test code = BACU) TRACE /HPF NONE SEEN UA SQUAMOUS CELLS (test code = 0-5 /HPF NONE SEEN SQU) UA CALCIUM OXALATE CRYSTALS 2+ /HPF NONE SEEN A (test code = CAOXU) UA MUCUS (test code = MUCU) 2+ /LPF NONE SEEN A COMMENTS: Clean CatchSURGICAL [id number] 07:04:00 RUN DATE: 08/18/18 [place] [facility] *LIVE* PAGE 1 RUN TIME: 704 Specimen Inquiry RUN USER: INTERFACE PATIENT: MARIFER VELA [facility] [place] #: [id number] AGE/SX: 72/F [facility] [place] DR: Ricardo Galvez : [birth year] BED: 1 DIS: 08/04/18 STATUS: DIS IN TLOC: SPEC #: [id number] RECD: 08/03/18 STATUS: MORENA REQ #: [id number] DEVIN: 08/03/[address]: Ricardo Galvez MD ENTERED: 08/17/18 SP TYPE: SURG SPEC OTHR DR: No Primary or Family Physician Self Referred Nick Jimenez MD, Dhatri MDORDERED: LEVEL 4 CODES: [id number] - URETER, NOS COPIES TO: No Primary or Family Physician Self Referred Ricardo Galvez MD C/O [facility], [address] [place], [place] [id number] Nick Jimenez MD [address] [place] [phone] [email or web address] Nesbitt MD [address] [place] [address] [phone] PROCEDURES: GM LEVEL 4 (Incomplete) TISSUES: 1. URETER, NOS - C alculus, right ureter FINAL DIAGNOSIS Calculus, right ureter: Calculus (gross examination); chemical analysis to follow. GROSS AND MICROSCOPIC GROSS DESCRIPTION: Received fresh and labeled calculus are multiple fragments up to 0.2 cm in diameter. The fragments are sentfor chemical analysis. CONTINUED ON NEXT PAGE RUN DATE: 08/18/18 [facility]*LIVE* PAGE 2 RUN TIME: 0705 Specimen Inquiry RUN USER: INTERFACE --SPEC #: [id number] PATIENT: MARIFER VELA LAILA #[id number] (Continued) POST-OP DIAGNOSIS Right ureteral stone with hydronephrosis PRE-OP DIAGNOSIS Right ureteral stone with hydronephrosi s SignedSIGNATURE ON FILE Pino Yusuf MD 08/18/18 0704 END OF REPORT
--- NOTE | 2021-05-24 15:53 | RAD REPORT ---
EXAM DESCRIPTION: CT - Stone Protocol - 05/24/2021 3:29 pm CLINICAL HISTORY: Abdominal pain. Left flank pain COMPARISON: None. TECHNIQUE: Computed axial tomography of the abdomen pelvis was obtained without oral or IV contrast. Lack of IV and oral contrast limits evaluation of solid organs, bowel, and vessels. Coronal reformat yarelis images were obtained and reviewed. All CT scans are performed using dose optimization technique as appropriate and may include automated exposure control or mA/KV adjustment according to patient size. FINDINGS: Small left renal calculi. Mild to moderate left hydronephrosis. A 8 millimeter calculus pr oximal left ureter. A right renal calculus is not present. The liver, spleen, pancreas and adrenals appear grossly normal There is no evidence of diverticulitis. The appendix appears normal. Cholecystectomy Calcified uterine fibroids. A gastric band in place. 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
[2021-05-24 16:25] LABS: Urine Blood 3+ (Negative); Urine Glucose 1+ (Negative); Urine Protein 2+ (Negative); Urine Specific Gravity >=1.030 (1.005-1.030); Urine pH 5.5 (5.0-7.0)
--- NOTE | 2021-05-24 16:53 | RAD REPORT ---
EXAM DESCRIPTION: RAD - Abdomen 1 View (KUB) - 05/24/2021 4:29 pm CLINICAL HISTORY: Abdomen pain. FINDINGS: The bowel gas pattern is unremarkable. The patient's known left ureteral calculus is not clearly visualized on this examination. Calcified uterine fibroids Gastric band in place
[2021-05-24 16:57] LABS: Absolute Lymphocytes (CBC) 0.9 K/uL (0.7-4.9); Basophils % 0.4 % (0-1.3); Hematocrit 42.9 % (36.0-45.0); Lymphocytes % 10.8 % (15.3-44.8); MPV 10.6 fL (7.6-11.3); RBC Red Blood Cell Count 5.07 M/uL (3.86-4.86)
[2021-05-24 17:19] LABS: ALT/SGPT 48 U/L (12-78); Albumin 4.3 g/dL (3.4-5.0); Alkaline Phosphatase 83 U/L (45-117); BUN Blood Urea Nitrogen 20 mg/dL (7-18); Bicarbonate 26 mmol/L (21-32); Bilirubin Direct < 0.1 mg/dL (0-0.2); Bilirubin Total 0.7 mg/dL (0.2-1.0); Glucose Level 141 mg/dL (74-106); Lipase 78 U/L (73-393); Protein, Total 8.2 g/dL (6.4-8.2); Sodium Level 138 mmol/L (136-145)
[2021-05-24 17:21] LABS: AST/SGOT 62 U/L (15-37); Potassium 4.8 mmol/L (3.5-5.1)
--- NOTE | 2021-05-24 17:26 | ER ---
Nurse's Notes [facility] Name: Arelis Marie Age: 75 yrs Sex: Female : 1945 Arrival Date: 05/24/2021 Time: 13:17 Bed 13 Private MD: Diagnosis: Hydronephrosis with renal and ureteral calculous obstruction-8 mm left ureter;Type 2 diabetes mellitus with hyperglycemia Presentation: 05/24 14:35 Chief complaint: Patient states: left flank pain started this morning , feels like a iw kidney stone, +prev hx of kidney stones , also very nauseous , no vomiting. Coronavirus screen: At this time, the client does not indicate any symptoms associated with coronavirus-19. Ebola Screen: Patient negative for fever greater than or equal to 101.5 degrees Fahrenheit, and additional compatible Ebola Virus Disease symptoms Patient denies exposure to infectious person. Patient denies travel to an Ebola-affected area in the 21 days before illness onset. No symptoms or risks identified at this time. Initial Sepsis Screen: Does the patient meet any 2 criteria? No. Patient's initial sepsis screen is negative. Does the patient have a suspected source of infection? No. Patient's initial sepsis screen is negative. Risk Assessment: Do you want to hurt yourself or someone else? Patient reports no desire to harm self or others. Onset of symptoms was May 24, 2021. 14:35 Method Of Arrival: Ambulatory iw 14:35 Acuity: ANY 3 iw Historical: - Allergies: 14:36 Demerol; iw - PMHx: 14:36 Diabetes mellitus; Hypertensive disorder; cholesterol; brain tumor, noncancerous; iw - Family history:: not pertinent. Screenin:01 Nutritional screening: No deficits noted. iw Assessment: 15:01 General: Appears in no apparent distress. uncomfortable, Behavior is calm, cooperative. iw Pain: Complains of pain in left low back and left mid back. GI: Abdomen is non-distended, Reports nausea. 17:42 Reassessment: Patient appears in no apparent distress at this time. Patient and/or iw family updated on plan of care and expected duration. Pain level reassessed. Patient is alert, oriented x 3, equal unlabored respirations, skin warm/dry/pink. Patient states feeling better. Patient states symptoms have improved. Vital Signs: 16:33 BP 149 / 72; Pulse 74; Resp 16; Temp 98.4; Pulse Ox 98% on R/A; iw ED Course: 13:17 Patient arrived in ED. ds1 14:36 Triage completed. iw 15:01 Mikayla Ordonez, RN is Primary Nurse. iw 15:06 Adama Ronquillo MD is Attending Physician. tanvi 15:29 CT Stone Protocol In Process Unspecified. EDMS 16:28 Abdomen 1 View (KUB) XRAY In Process Unspecified. EDMS 16:33 Inserted Missed attempt(s): 20 gauge in right antecubital area. iw 16:36 Urine Culture Sent. mh5 16:36 Urine collected: clean catch specimen, cloudy. mh5 16:37 Patient has correct armband on for positive identification. Bed in low position. Call mh5 light in reach. Side rails up X 1. Warm blanket given. Pillow given. 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 Pulse ox on. NIBP on. 17:26 Rommel Tobin MD is Referral Physician. tanvi Administered Medications: 18:20 Drug: Rocephin (cefTRIAXone) 1 grams Route: IM; Site: right ventrogluteal; iw 18:30 Follow up: Response: No adverse reaction iw 18:22 Not Given (Patient Refused): morphine 2 mg IVP once; (PAIN>8) RASS on ADMN: Combtv4, iw Very Agttd3, Agttd2, Rstlss1, AlertClm0, Drwsy-1, LtSdtn-2, ModSdtn-3, DpSdtn-4, UnArsble-5 x2 18:22 Not Given (Patient Refused): Zofran (Ondansetron) 4 mg IVP once; over 2 minutes iw 18:22 Drug: Flomax (tamsulosin) 0.4 mg Route: PO; iw 18:30 Follow up: Response: No adverse reaction iw 18:22 Drug: Cipro (ciprofloxacin) 500 mg Route: PO; iw 18:30 Follow up: Response: No adverse reaction iw 18:25 Not Given (Patient Refused): NS 0.9% 500 ml IV at bolus once iw 18:27 Not Given (Other Intervention Used): Rocephin (cefTRIAXone) 1 grams IV at per protocol iw once; Given slow IV push per pharmacy instructions Outcome: 17:26 Discharge ordered by MD. tanvi 18:31 Patient left the ED. iw Signatures: Dispatcher [employer] Adama Olivera MD MD cha Sanford, Demi ds1 Mikayla Ordonez RN RN uJlia Cabrales mh5
--- NOTE | 2021-05-24 17:26 | EDPHYS ---
Physician Documentation [facility] Name: Arelis Marie Age: 75 yrs Sex: Female : 1945 Arrival Date: 05/24/2021 Time: 13:17 Bed 13 Private MD: ROBERT Physician Adama Ronquillo HPI: 05/24 16:14 This 75 yrs old Female presents to ER via Ambulatory with complaints of Pain tanvi on L Side, Nausea. 16:14 This 75 yrs old Female presents to ER via Ambulatory with complaints of Pain tanvi on L Side, Nausea. 16:14 The patient presents to the emergency department with nausea, vomiting, that is tanvi intermittent. Onset: The symptoms/episode began/occurred this morning. 16:15 The patient complains of pain in the left low back and left mid back. The pain radiates tanvi to the left mid back. Modifying factors: The symptoms are alleviated by nothing. the symptoms are aggravated by nothing. Possible causes: left flank pain. The symptoms are aggravated by nothing. The symptoms are alleviated by nothing. Associated signs and symptoms: Pertinent positives: nausea, vomiting. Severity of symptoms: At their worst the symptoms were mild moderate in the emergency department the symptoms are unchanged. Historical: - Allergies: 14:36 Demerol; iw - PMHx: 14:36 Diabetes mellitus; Hypertensive disorder; cholesterol; brain tumor, noncancerous; iw - Family history:: not pertinent. ROS: 16:15 Constitutional: Negative for fever, chills, and weight loss, Eyes: Negative for injury, tanvi pain, redness, and discharge, ENT: Negative for injury, pain, and discharge, Neck: Negative for injury, pain, and swelling, Cardiovascular: Negative for chest pain, palpitations, and edema, Respiratory: Negative for shortness of breath, cough, wheezing, and pleuritic chest pain, Abdomen/GI: Negative for abdominal pain, nausea, vomiting, diarrhea, and constipation, : Negative for injury, bleeding, discharge, and swelling, MS/Extremity: Negative for injury and deformity, Skin: Negative for injury, rash, and discoloration, Neuro: Negative for headache, weakness, numbness, tingling, and seizure, Psych: Negative for depression, anxiety, suicide ideation, homicidal ideation, and hallucinations, Allergy/Immunology: Negative for hives, rash, and allergies, Endocrine: Negative for neck swelling, polydipsia, polyuria, polyphagia, and marked weight changes, Hematologic/Lymphatic: Negative for swollen nodes, abnormal bleeding, and unusual bruising. 16:15 Back: Positive for flank pain, on the left, of the left low back and left mid back. Exam: 16:15 Constitutional: This is a well developed, well nourished patient who is awake, alert, tanvi and in no acute distress. Head/Face: Normocephalic, atraumatic. Eyes: Pupils equal round and reactive to light, extra-ocular motions intact. Lids and lashes normal. Conjunctiva and sclera are non-icteric and not injected. Cornea within normal limits. Periorbital areas with no swelling, redness, or edema. ENT: Nares patent. No nasal discharge, no septal abnormalities noted. Tympanic membranes are normal and external auditory canals are clear. Oropharynx with no redness, swelling, or masses, exudates, or evidence of obstruction, uvula midline. Mucous membranes moist. Neck: Trachea midline, no thyromegaly or masses palpated, and no cervical lymphadenopathy. Supple, full range of motion without nuchal rigidity, or vertebral point tenderness. No Meningismus. Chest/axilla: Normal chest wall appearance and motion. Nontender with no deformity. No lesions are appreciated. Cardiovascular: Regular rate and rhythm with a normal S1 and S2. No gallops, murmurs, or rubs. Normal PMI, no JVD. No pulse deficits. Respiratory: Lungs have equal breath sounds bilaterally, clear to auscultation and percussion. No rales, rhonchi or wheezes noted. No increased work of breathing, no retractions or nasal flaring. Abdomen/GI: Soft, non-tender, with normal bowel sounds. No distension or tympany. No guarding or rebound. No evidence of tenderness throughout. Female : Normal external genitalia. Skin: Warm, dry with normal turgor. Normal color with no rashes, no lesions, and no evidence of cellulitis. MS/ Extremity: Pulses equal, no cyanosis. Neurovascular intact. Full, normal range of motion. Neuro: Awake and alert, GCS 15, oriented to person, place, time, and situation. Cranial nerves II-XII grossly intact. Motor strength 5/5 in all extremities. Sensory grossly intact. Cerebellar exam normal. Normal gait. Psych: Awake, alert, with orientation to person, place and time. Behavior, mood, and affect are within normal limits. 16:15 Back: pain, that is moderate, ROM is normal, normal spinal alignment noted, CVA tenderness, is absent, vertebral tenderness, is not appreciated. Vital Signs: 16:33 BP 149 / 72; Pulse 74; Resp 16; Temp 98.4; Pulse Ox 98% on R/A; iw MDM: 15:06 Patient medically screened. [facility] 16:17 Differential diagnosis: Nonspecific abd pain. Data reviewed: vital signs, nurses notes, [facility] lab test result(s), EKG, radiologic studies, CT scan, plain films. Data interpreted: cardiac monitor: rate is 89 beats/min, rhythm is regular. Test interpretation: by ED physician or midlevel provider: ECG, plain radiologic studies. Counseling: I had a detailed discussion with the patient and/or guardian regarding: the historical points, exam findings, and any diagnostic results supporting the discharge/admit diagnosis, lab results, radiology results. 17:23 ED course: call to dr jaja parra, will follow up. [facility] 05/24 15:07 Order name: Basic Metabolic Panel; Complete Time: 17:23 [facility] 05/24 15:07 Order name: CBC with Diff; Complete Time: 17:23 [facility] 05/24 15:07 Order name: Hepatic Function; Complete Time: 17:23 [facility] 05/24 15:07 Order name: Lipase; Complete Time: 17:23 [facility] 05/24 15:07 Order name: Urine Culture [facility] 05/24 16:25 Order name: Urine Dipstick-Ancillary [facility] 05/24 14:37 Order name: CT Stone Protocol; Complete Time: 15:55 05/24 15:56 Order name: Abdomen 1 View (KUB) XRAY; Complete Time: 17:23 [facility] 05/24 15:07 Order name: IV Saline Lock [facility] 05/24 15:07 Order name: Labs collected and sent; Complete Time: 16:34 [facility] 05/24 15:07 Order name: Urine Dipstick-Ancillary (obtain specimen); Complete Time: 16:36 [facility] Administered Medications: 18:20 Drug: Rocephin (cefTRIAXone) 1 grams Route: IM; Site: right ventrogluteal; iw 18:30 Follow up: Response: No adverse reaction iw 18:22 Not Given (Patient Refused): morphine 2 mg IVP once; (PAIN>8) RASS on ADMN: Combtv4, iw Very Agttd3, Agttd2, Rstlss1, AlertClm0, Drwsy-1, LtSdtn-2, ModSdtn-3, DpSdtn-4, UnArsble-5 x2 18:22 Not Given (Patient Refused): Zofran (Ondansetron) 4 mg IVP once; over 2 minutes iw 18:22 Drug: Flomax (tamsulosin) 0.4 mg Route: PO; iw 18:30 Follow up: Response: No adverse reaction iw 18:22 Drug: Cipro (ciprofloxacin) 500 mg Route: PO; iw 18:30 Follow up: Response: No adverse reaction iw 18:25 Not Given (Patient Refused): NS 0.9% 500 ml IV at bolus once iw 18:27 Not Given (Other Intervention Used): Rocephin (cefTRIAXone) 1 grams IV at per protocol iw once; Given slow IV push per pharmacy instructions Disposition Summary: 05/24/21 17:26 Discharge Ordered Location: Home tanvi Problem: new tanvi Symptoms: have improved tanvi Condition: Stable tanvi Diagnosis - Hydronephrosis with renal and ureteral calculous obstruction - 8 mm left ureter tanvi - Type 2 diabetes mellitus with hyperglycemia tanvi Followup: tanvi - With: Private Physician - When: 2 - 3 days - Reason: Recheck today's complaints, Continuance of care, Re-evaluation by your physician Followup: tanvi - With: - When: 2 - 3 days - Reason: Recheck today's complaints, Re-evaluation by your physician Discharge Instructions: - Discharge Summary Sheet tanvi - Type 2 Diabetes Mellitus, Diagnosis, Adult tanvi - Kidney Stones tanvi - Kidney Stones, [id number] tanvi - Hydronephrosis tanvi - Dietary Guidelines to Help Prevent Kidney Stones tanvi Forms: - Medication Reconciliation Form tanvi - Thank You Letter tanvi - Antibiotic Education tanvi - Prescription Opioid Use tanvi Prescriptions: - acetaminophen-codeine 300 mg-30 mg /12.5 mL Oral solution - take 25 milliliter by ORAL route every 6 hours; 220 milliliter; Refills: 0, tanvi Product Selection Permitted - tamsulosin 0.4 mg Oral capsule - take 1 capsule by ORAL route once daily 1/2 hour following the same meal each tanvi day; 30 capsule; Refills: 0, Product Selection Permitted - Cipro 250 mg Oral Tablet - take 1 tablet by ORAL route every 12 hours; 14 tablet; Refills: 0, Product tanvi Selection Permitted - Zofran 4 mg Oral Tablet - take 1 tablet by ORAL route every 12 hours As needed; 20 tablet; Refills: 0, tanvi Product Selection Permitted Signatures: Dispatcher [employer] Adama Olivera MD MD cha Williams, Irene, RN RN iw
[2021-05-24] MEDS ORDERED: TAMSULOSIN 0.4 MG SR CAP ONE (18:18)
[2021-05-24] MEDS ORDERED: LIDOCAINE 1% MPF 5 ML VIAL ONE (18:18)
[2021-05-24] MEDS ORDERED: CIPROFLOXACIN HCL 500 MG TAB ONE (18:18)
[2021-05-24] MEDS ORDERED: CEFTRIAXONE 1000 MG/VIAL ONE (18:19)
[2021-05-24 18:54] VITALS: BP 149/72; TEMP 98.4; O2SAT 98
== END 2021-05-24 18:31 | disposition home or self-care (01) ==
LOC: ER 13:14
DX: N13.2 Hydronephrosis with renal and ureteral calculous obstruction (principal); E11.65 Type 2 diabetes mellitus with hyperglycemia; I10 Essential (primary) hypertension; Z88.5 Allergy status to narcotic agent
CPT/HCPCS: 36415; 74018; 74176; 76377; 80048; 80076; 81003; 83690; 85025; 87086; 87088; 96372; 99284

== ENCOUNTER 2021-05-26 05:20 | Emergency (ER) | payer OTHER, BC ==
--- OUTSIDE RECORDS SUMMARY | 2021-05-26 05:23 | XMS REPORT | Continuity of Care Document ---
:1945 Author Organization [facility] t Address [address] [place] [address] Care Team Providers Name Role Phone MELODY [...] Date Date Clinician na MUHAMMAD Active 2018-11 [facility] ne 0-10 Clear 00:00: Chapman 00 [facility] meperidi DA Active 2018-11 [facility] ne 0-07 Clear 00:00: Chapman 00 [facility] meperidi DA [place] 2017-11 [facility] ne 0-06 Clear 00:00: Chapman 00 [facility] meperidi DA [place] 2017-11 [facility] ne 0-02 Clear 00:00: Chapman [facility] meperidi DA Active [place] 2016-11 [facility] ne 0-07 Clear 00:00: Chapman 00 [facility] Medications Ordered Filled Start Stop Current Ordering [...] Aundrea es - Tablet Tablet Memoria l (LUF/LI V/SA) atenolol 50 atenolol 50 Yes 50mg 1xD C [facility] MG Oral MG Oral [facility] - Tablet Tablet Memoria l (LUF/LI V/SA) Immunizations Ordered Immunization Filled Immunization Date Status Commen ts Source Name Name tetanus toxoid, tetanus toxoid, 2021-05-04 Completed [facility] diphtheria reduced diphtheria 14:55:00 [facility] toxoid, and toxoid, and ([facility]/IMAN/SA) acellular pertussis acellular pertussis vaccine, adsorbed vaccine, adsorbed Vital Signs Vital Name Observation Time Observation Value Comments Source Body Temperature 2021-05-04 14:30:00 96.5 [degF] [facility] (LUF/IMAN/SA) Pulse Rate 2021-05-04 14:30:00 84 /min [facility] (F/IMAN/SA) Respiratory Rate 2021-05-04 14:30:00 18 /min [facility] (F/IMAN/SA) O2% BldC Oximetry 2021-05-04 14:30:00 97 % [facility] (F/IMAN/SA) BP Systolic 2021-05-04 14:30:00 160 mm[Hg] [facility] (LUF/IMAN/SA) BP Diastolic 2021-05-04 14:30:00 75 mm[Hg] [facility] (LUF/IMAN/SA) Height 2021-05-04 14:30:00 68 [in_i] [facility] (LUF/IMAN/SA) Weight 2021-05-04 14:30:00 229 [lb_av] [facility] (LUF/IMAN/SA) BMI (Body Mass Index) 2021-05-04 14:30:00 35.1 kg/m2 [facility] (LUF/IMAN/SA) Procedures This patient has no known procedures. Encounters Start End Encounter Admission Attending Care Care Encounter Source Date/Time Date/Time Type Type Clinicians Facility Department ID 2021-05-14 2021-05-14 OTHER [facility] [id number] [facility] [address] 12:35:00 23:59:00 SPECIFIED [place] Luke s - DISORDERS MAINE, Memori a OF BRAIN [address] (LUF/LI A[address], V/SA) [place] [id number] 2021-05-14 2021-05-14 Inpatient [facility] [id number] [facility] St 00:00:00 00:00:00 [place] [id number] [facility], [id number] Memor ia [id number] (LUF/LI AVE, V/SA) [place] [id number] 2021-05-14 2021-05-14 Inpatient [facility] [id number] [facility] St 00:00:00 00:00:00 [place] [id number] [facility], [phone] Memor ia [id number] (LUF/LI AVE, V/SA) [place] [id number] 2021-05-14 2021-05-14 Inpatient [facility] [id number] 00[facility] 00:00:00 [place] [id number] [facility], [phone] Memor ia [id number] ([facility]/ [place]VE, [place] [address] 2021-05-04 2021-05-04 PROC&TX 1 MELODY, [facility] [id number] [facility]) 14:30:00 17:00:00 NOT PENI CRISTOFER [place] Amy kes - CARRIED , [address] Memoria OUT PT [facility] ([facility] V/SA) [facility] [place] [address] 2021-05-04 2021-05-04 Inpatient [facility] [id number] [facility] 00:00:00 00:00:00 CRISTOFER [place] [id number] [facility] - , 511 [id number] [facility] [id number] [facility] ([facility] V/SA) [facility] [address] 2021-05-04 2021-05-04 Inpatient [facility] [id number] [facility] 00:00:00 00:00:00 CRISTOFER [place] [id number] tayla - , 511 [id number] [facility] 5227bf [facility] ([facility] V/SA) [facility] [place] [address] Results Test Description Test Test Comments Results Result Sour e Time Comments MRI BRAIN WO/W 2021-05- If patient is CONT 15 claustrophobic 00:47:53 , contact [facility] ordering phy ([facility]/IMAN/SA)Name: red VELA MARIFER Adams : additional 1945 Sex: instructions. F Procedure: MRI BRAIN WO/W CONTOrder Date: 05/14/2021 4:15 PMOrdering Provider: RUPERTO Chavira Indication: [id number]: Disorder of brainComparison: May 04, 2021Technique: Multiplanar, [...] MIN 2 2021-05- VIEWS 04 16:19:48 [facility] ([facility]/SA)Name: MARIFER VELA : 1945 Sex: F Procedures: XR TOES MIN 2 VIEWSExam Date: 05/04/2021 2:48 PMOrdering Physician: JEREMY OLIVER .Clinical Indication: [id number]: Pain of toe of right footComparison: None [...] CT HEAD W/O 2021-05- CONTRAST 04 16:06:37 [facility] ([facility]/)Name: MARIFER VELA : 1945 Sex: F Procedures: CT HEAD W/O CONTRAST, CT CERVICAL SPINE W/O CONTRASTExam Date: 05/04/2021 2:48 PMOrdering Physician: JEREMY OLIVER .Clinical Indication: : Unspecified [id number]: Injury of headComparison: None available.TECHNIQUE: Using a [...] with adjacent hypoattenuation possibly representing cytotoxic edema.Brain: Narveaz-white matter differentiation is normal. No mass effect [...] CERVICAL 2021-05- SPINE W/O 04 CONTRAST 16:06:18 [facility] ([facility]/SA)Name: ARIC VELAJOCHACHA Adams : 1945 Sex: F Procedures: CT HEAD W/O CONTRAST, CT CERVICAL SPINE W/O CONTRASTExam Date: 05/04/2021 2:48 PMOrdering Physician: JEREMY OLIVER .Clinical Indication: : Unspecified [id number]: Injury of headComparison: None available.TECHNIQUE: Using a [...] 137 MG/DL 70-110 H Performed by certified screw machine operator swiss type at [facility] - XR FLUOROSCOPY 0-60 [id number] 14:11:00 FAX: Nick Deluca MD [phone] [place]: St: REG Name: MARIFER VELA [facility] : 1945 Age/S: 73/F [address] [place] [address] Unit#: [id number] Loc: [place] [address] Phys: Nick Jimenez MD Acct: [id number] Dis Date: Status: [place] [facility] PHONE #: [phone] Exam Date: 08/10/2019 1406 FAX #: [phone] Reason: KIDNEY STONES, HYDRONEPHROSIS EXAMS: CPT CODE: [id number] XR FLUOROSCOPY 0-60 MIN 72599 Study: - XR FLUOROSCOPY 0-60 MIN 08/10/2019 2:02 PM Patient Name: MARIFER VELA MR: [id number] DATE: 08/10/2019 2:02 PM : 1945; Age: 73 years y/o Female Ordering Physician: Nick Jimenez MD Clinical Indication: KIDNEY STONES, HYDRONEPHROSIS Intraprocedural fluoroscopy was provided by the Department of Radiology. Any images obtained were interpreted by the surgeon intraoperatively. Fluoroscopy time: 32 seconds Reference Air Kerma: 16.3 mGy SL: [id number] at 1411 Reported and signed by: Colin Nash D.O. CC: Nick Jimenez MD Technologist: RT Selma(R) Trnscrd Date/Time/By: 08/10/2019 (932) : By: [email or web address] Orig Print D/T: S: 08/10/2019 (8793) PAGE 1 Signed Report- XR FLUOROSCOPY 0-60 MIN 2019-08-10 14:11:00 FAX: Nick Deluca MD [phone] [place]: St: DEP Name: MARIFER VELA [facility] : 1945 Age/S: 73/F [address] [place] [address] Unit#: [id number] Loc: [place] [address] Phys: Nick Jimenez MD Acct: [id number] Dis Date: Status: [facility] PHONE #: [phone] Exam Date: 08/10/2019 1406 FAX #: [phone] Reason: KIDNEY STONES, HYDRONEPHROSIS EXAMS: CPT CODE: [id number] XR FLUOROSCOPY 0-60 MIN 17757 Study: - XR FLUOROSCOPY 0-60 MIN 08/10/2019 2:02 PM Patient Name: MARIFER VELA MR: [id number] DATE: 08/10/2019 2:02 PM : 1945; Age: 73 years y/o Female Ordering Physician: Nick Jimenez MD Clinical Indication: KIDNEY STONES, HYDRONEPHROSIS Intraprocedural fluoroscopy was provided by the Department of Radiology. Any images obtained were interpreted by the surgeon intraoperatively. Fluoroscopy time: 32 seconds Reference Air Kerma: 16.3 mGy SL: [id number] at 1411 Reported and signed by: Colin Nash D.O. CC: Nick Jimenez MD Technologist: RT Selma(R) Trnscrd Date/Time/By: 08/10/2019 (141) : By: [email or web address] Orig Print D/T: S: 08/10/2019 (2167) PAGE 1 Signed [id number] 12:12:00 Test Item Value Reference Range Interpretation Comments GLUBED (test code = 99 MG/DL 70-110 N Performe d by certified GLUBED) screw machine operator swiss type at [facility] BASIC METABOLIC [id number] 16:44:00 Test Item Value Reference Range Interpretation [...] 10.0 mg/dL 8.0-10.5 N CA) BASIC METABOLIC [id number] 16:41:00 Test Item Value Reference Range Interpretation [...] = 10.0 mg/dL 8.0-10.5 N CA) PROTHROMBIN [id number] 16:38:00 Test Item Value Reference Range Interpretation [...] o prevent recurre nt infarct). THROMBOPLASTIN TIME [id number] 16:38:00 Test Item Value Reference Range Interpretation Comments THROMBOPLASTIN TIME 36.7 Seconds 25.0-39.5 N Ther apeutic PARTIAL (test code = Range: 50.4 - 88.3 PTT) Seconds Effective 02/14/2019 CBC W/AUTO [id number] 16:32:00 Test Item Value Reference Range Interpretation [...] REQUIRED (test code NO = MDIFF) URINALYSIS [id number] 16:23:00 Test Item Value Reference Range Interpretation [...] NITRITE DIPSTICK (test code = NEGATIVE NEGATIVE THALIA) UA LEUKOCYTE ESTERASE DIPSTICK 3+ NEGATIVE A [...] NONE SEEN A - XR CHEST 2 [id number] 15:42:00 FAX: Nick Deluca MD [phone] [place]: St: PRE Name: MANISHA VELA [facility] Bhanu Chapman : 1945 Age/S: 73/F [address] [place] [address] Unit#: [id number] Loc: [place] [address] Phys: Nick Jimenez MD Acct: [id number] Dis Date: Status: PRE SDC PHONE #: [phone] Exam Date: 08/07/2019 1540 FAX #: [phone] Reason: PRE-OP CYSTOSCOPY EXAMS: CPT CODE: [id number] XR CHEST 2 V 19640 Patient: MANISHA VELA. : 1945; Age: 73 years; Gender: Female. MR: [id number]. Ordering physician: Nick Jimenez MD. CHEST 2 VIEWS: HISTORY: Kidney stones, preoperative evaluation for cystoscopy. COMPARISON: None. FINDINGS: Frontal and lateral views of the chest were obtained. The lungs are clear bilaterally. The cardiomediastinal silhouette and pulmonary vasculature are unremarkable. The partially visualized upper abdomen is unremarkable. IMPRESSION: No acute disease in the chest. SL: [id number] at 2932 Reported and signed by: Adam Oneil M.D. CC: Nick Jimenez MD Technologist:RT Selma(Janet) Trnscrd Date/Time/By: 08/07/2019 (9855) : By:[email or web address] Orig Print D/T: S: 08/07/2019 (0319) PAGE 1 Signed Report- XR CHEST 2 [id number] 15:42:00 FAX: Nick Deluca MD [phone] [place]: St: [facility] Name: MARIFER VELA [facility] : 1945 Age/S: 73/F [address] [place] [address] Unit#: [id number] Loc: [place] [address] Phys: Nick Jimenez MD Acct: [id number] Dis Date: Status: [facility] PHONE #: [phone] Exam Date: 08/07/2019 1540 FAX #: [phone] Reason: PRE-OP CYSTOSCOPY EXAMS: CPT CODE: [id number] XR CHEST 2 V 42120 Patient: MANISHA VELA. : 1945; Age: 73 years; Gender: Female. MR: [id number]. Ordering physician: Nick Jimenez MD. CHEST 2 VIEWS: HISTORY: Kidney stones, preoperative evaluation for cystoscopy. COMPARISON: None. FINDINGS: Frontal and lateral views of the chest were obtained. The lungs are clear bilaterally. The cardiomediastinal silhouette and pulmonary vasculature are unremarkable. The partially visualized upper abdomen is unremarkable. IMPRESSION: No acute disease in the chest. SL: [id number] at 1548 Reported and signed by: Adam Oneil M.D. CC: Nick Jimenez MD Technologist:RT Selma(R) Trnscrd Date/Time/By: 08/07/2019 (3000) : By:[email or web address] Orig Print D/T: S: 08/07/2019 (7218) PAGE 1 Signed Report- XR UROGRAM [id number] 11:45:00 FAX: Ricardo Wheeler [phone] [place]: St: DIS FAX: Nick Deluca MD [phone] Name: ARIC VELARAUL ULLOA [facility] : 1945 Age/S: 73/F [address] [place] [address] Blvd Unit #: [id number] Loc: [address] [place] [address] Phys: Nick Jimenez MD Acct: [id number] Dis Date: [id number] Status: DIS IN PHONE #: [phone] Exam Date: 07/11/2019804 FAX #: [phone] Reason: LT RENAL STONE EXAMS: CPT CODE: [id number] XR UROGRAM RETRO 81045 Patient: MARIFER VELA. : 1945; Age: 73 years; Gender: Female. MR: [id number]. Ordering physician: Nick Jimenez MD. X-ray of [...] seconds. Reference air kerma: 36.3 mGy. SL: [id number] at 1145 Reported and signed by: Adam Oneil M.D. CC: Ricardo Galvez MD; Nick Bell Technologist: RT Radha(R) Trnscrd Date/Time/By: 07/11/2019 (2891) : By: [facility].VIVE/[facility].VIVE Orig Print D/T: S: 07/11/2019 (5725) PAGE 1 Signed Report [id number] 09:21:00 Test Item Value Reference Range Interpretation Comments GLUBED (test code = 157 MG/DL 70-110 H Performe d by certified GLUBED) screw machine operator swiss type at [facility] [id number] 08:37:00 Test Item Value Reference Range Interpretation Comments GLUBED (test code = 123 MG/DL 70-110 H Performe d by certified GLUBED) screw machine operator swiss type at [facility] - XR CHEST 1 [id number] 07:06:00 FAX: Ricardo Wheeler [phone] [place]: St: ADM Name: MARIFER VELA [facility] : 1945 Age/S: 73/F [address] [place] [address] Unit#: [id number] [facility] [place] [address] Phys: Ricardo Galvez Acct: [id number] Dis Date: Status: ADM IN PHONE #: [phone] Exam Date: 07/11/2019 06 FAX #: [phone] Reason: PRE OP PROTOCOL EXAMS: CPT CODE: [id number] XR CHEST 1 V 82151 EXAM: CR, XR chest one view: 07/11/2019, [...] D/T: S: 07/11/2019 (09) PAGE 1 Signed [id number] 06:42:00 Test Item Value Reference Range Interpretation Comments GLUBED (test code = 96 MG/DL 70-110 N Performe d by certified GLUBED) screw machine operator swiss type at [facility] BASIC METABOLIC [id number] 04:29:00 Test Item Value Reference Range Interpretation [...] = 9.0 mg/dL 8.0-10.5 N CA) PROTHROMBIN [id number] 04:19:00 Test Item Value Reference Range Interpretation [...] o prevent recurre nt infarct). THROMBOPLASTIN TIME [id number] 04:19:00 Test Item Value Reference Range Interpretation Comments THROMBOPLASTIN TIME 32.7 Seconds 25.0-39.5 N Ther apeutic PARTIAL (test code = Range: 50.4 - 88.3 PTT) Seconds Effective 02/14/2019 - CT ABD PELVIS W/O [id number] 13:54:00 Name: MARIFER VELA [facility] Bhanu Chapman : 1945 Age/S: 73 / F [address] [place] [address] Unit #: [id number] Loc: [place] [id number] Phys: Saul Garcia MD Acct: [id number] Dis Date: Status: REG ER PHONE #: [phone] Exam Date: 07/10/2019 1301 FAX #: [phone] Reason: L FLANK PAIN EXAMS: CPTCODE: [id number] CT ABD PELVIS W/O CONT 97735 Patient: MARIFER VELA. : 1945; Age: 73 years; Gender: Female. MR: [id number]. Ordering physician: Saul Garcia MD. PROCEDURE: CT [...] 1 Signed Report (CONTINUED) Name: MARIFER VELA [facility] [place] : 1945 Age/S: 73 / F [address] [place], [place] [address] Unit #: [id number] Loc: [place] [address] Phys: Saul Garcia MD Acct: [id number] Dis Date: Status: REG ER PHONE #: [phone] Exam Date: 07/10/2019 1301 FAX #: [phone] Reason: L FLANK PAIN EXAMS: CPT CODE: [id number] CT ABD PELVIS W/O CONT 35172 <Continued> PERITONEUM: No free intraperitoneal fluid or [...] 3 mm or less pulmonary nodules. SL: [id number] at 0058 Reported and signed by: Adam Oneil M.D. CC: Technologi st:RT Hanna(R)(CT) CTDI: DLP: Trnscb Date/Time: 07/10/2019 (8787) [email or web address] Orig Print D/T: S: 07/10/2019 (7415) PAGE 2 Signed ReportHEPATIC FUNCTION PANEL 2019-07-10 [...] 96 IUnit/L 20-125 N code = ALKP) [id number] 12:36:00 Test Item Value Reference Range Interpretation Comments LIPASE (test code = LIP) 153 IUnit/L 73-393 N CBC W/AUTO [id number] 12:27:00 Test Item Value Reference Range Interpretation [...] (test code NO = MDIFF) CHEMISTRY 8 [id number] 12:09:00 Test Item Value Reference Range Interpretation [...] ML/MIN (test code = GFRBED) CHEMISTRY 8 [id number] 12:09:00 Test Item Value Reference Range Interpretation Comments ISTAT-SODIUM (test 141 MMOL/L 134-147 N code = NAP) ISTAT-POTASSIUM (test 4.2 MMOL/L 3.4-5.0 N code = KP) ISTAT-CHLORIDE (test 103 MMOL/L 100-108 N Perform ed by code = CLP) certified opera tor at [facility] ISTAT CARBON DIOXIDE 26.0 mmol/L 21-33 N (test code = ISTAT-CO2) ISTAT CALCIUM IONIZED 1.19 MG/DL 1.12-1.32 N (test code = ISTAT-CATALINA) ISTAT-GLUCOSE (test 150 MG/DL 70-110 H code = GLUP) ISTAT-BUN (test code = 13 MG/DL 7-18 N BUNP) BEDSIDE CREATININE 0.7 MG/DL 0.6-1.3 N (test code = CREATBED) GLOMERULAR FILTRATION 87 ML/MIN RATE POC (test code = GFRBED) URINALYSIS [id number] 12:08:00 Test Item Value Reference Range Interpretation [...] /LPF NONE SEEN A COMMENTS: Clean CatchSURGICAL [id number] 07:04:00 RUN DATE: 08/18/18 [place] [facility] *LIVE* PAGE 1 RUN TIME: 704 Specimen Inquiry RUN USER: INTERFACE PATIENT: MARIFER VELA [facility] #: [id number] AGE/SX: 72/F [facility] RE08/02/18REG DR: Ricardo Galvez : [birth year] BED: 1 DIS: 08/04/18 STATUS: DIS IN TLOC: SPEC #: [id number] RECD: 08/03/18 STATUS: MORENA REQ #: [id number] DEVIN: 08/03/[address]: Ricardo Galvez MD ENTERED: 08/17/18 SP TYPE: SURG SPEC OTHR DR: No Primary or Family Physician Self Referred Nick Jimenez MD, Dhatri MDORDERED: LEVEL 4 CODES: [id number] - URETER, NOS COPIES TO: No Primary or Family Physician Self Referred Ricardo Galvez MD C/O LOCATED WITHIN [facility], [address] [place] [address] Nick Jimenez MD [address] [place] [address] [email or web address] Marti Nesbitt MD [address] [place] [address] PROCEDURES: GM LEVEL 4 (Incomplete) TISSUES: 1. URETER, NOS - C alculus, right ureter FINAL DIAGNOSIS Calculus, right ureter: Calculus (gross examination); chemical analysis to follow. GROSS AND MICROSCOPIC GROSS DESCRIPTION: Received fresh and labeled calculus are multiple fragments up to 0.2 cm in diameter. The fragments are sentfor chemical analysis. CONTINUED ON NEXT PAGE RUN DATE: 08/18/18 [facility]*LIVE* PAGE 2 RUN TIME: 0705 Specimen Inquiry RUN USER: INTERFACE --SPEC #: [id number] PATIENT: MARIFER VELA LAILA #[id number] (Continued) POST-OP DIAGNOSIS Right ureteral stone with hydronephrosis PRE-OP DIAGNOSIS Right ureteral stone with hydronephrosi s SignedSIGNATURE ON FILE Pino Yusuf MD 08/18/18 0704 END OF REPORT
[2021-05-26] MEDS ORDERED: MORPHINE 4 MG/ML SYR ONE (06:49)
[2021-05-26] MEDS ORDERED: ONDANSETRON 4 MG/2 ML VIAL ONE (06:49)
[2021-05-26 07:07] LABS: Absolute Lymphocytes (CBC) 0.6 K/uL (0.7-4.9); Basophils % 0.5 % (0-1.3); Hematocrit 36.9 % (36.0-45.0); Lymphocytes % 7.6 % (15.3-44.8); MPV 9.5 fL (7.6-11.3); RBC Red Blood Cell Count 4.37 M/uL (3.86-4.86)
[2021-05-26 07:26] LABS: Potassium 4.2 mmol/L (3.5-5.1)
--- NOTE | 2021-05-26 08:18 | RAD REPORT ---
EXAM DESCRIPTION: CT - Stone Protocol - 05/26/2021 6:29 am CLINICAL HISTORY: Flank pain. FLANK PAIN COMPARISON: Stone Protocol dated 05/24/2021 TECHNIQUE: Axial images were obtained without oral or IV contrast. Lack of contrast limits solid org an and vascular assessment. The ubgcc-md-norg spans the entirety of the system partially obscuring uppermost abdomen and lung bases. Coronal reformatted images were obtained and reviewed. All CT scans are performed using dose optimization technique as appropriate and may include automated exposure control or mA/KV adjustment according to patient size. FINDINGS: The lower lung garcia are clear. Imaged portions of the liver and spleen show no suspicious findings on non-contrast imaging.Cholecyst ectomy clips. Gastric banding procedure. The pancreas and adrenal glands are normal. No pathologic ly mphadenopathy in the abdomen or pelvis. 7 mm stone is present in the proximal left ureter with mild left hydronephrosis. Additional punctate calculus is seen in the inferior calyx of the left kidney. No bowel obstruction, free air, free fluid or abscess. Normal appendix noted. Moderate multilevel degenerative spondylosis of the lumbar spine. IMPRESSION: 7 mm stone proximal left ureter resulting in mild left hydronephrosis. Punctate calculus inferior calyx left kidney.
[2021-05-26] MEDS ORDERED: KETOROLAC 30 MG/ML INJ ONE (08:24)
[2021-05-26 10:08] LABS: Urine Blood 3+ (Negative); Urine Glucose 2+ (Negative); Urine Protein 1+ (Negative); Urine Specific Gravity >=1.030 (1.005-1.030)
--- NOTE | 2021-05-26 10:49 | RAD REPORT ---
EXAM DESCRIPTION: RAD - Chest Single View - 05/26/2021 10:25 am CLINICAL HISTORY: preop Chest pain. COMPARISON: Abdomen 1 View (KUB) dated 05/24/2021 FINDINGS: Portable technique limits examination quality. Mild interstitial pulmonary edema is present. The heart is mildly enlarged in size. No displaced frac tures.Cervical spine hardware. IMPRESSION: Mild CHF.
--- NOTE | 2021-05-27 08:01 | EKG ---
Test Date: 2021-05-26 Test Time: 09:20:33 Tool Room Supervisor: HARSHIL MEASUREMENT RESULTS: Intervals: Rate: 86 MO: 240 QRSD: 164 QT: 430 QTc: 514 [place]: P: 68 MO: 240 QRS: 39 T: 231 INTERPRETIVE STATEMENTS: Sinus rhythm with 1st degree AV block Left bundle branch block Abnormal ECG No previous ECG available for comparison Electronically Signed On 05-27-21 07:57:50 CDT by Harish Santizo
--- NOTE | 2021-05-27 17:15 | ER ---
Nurse's Notes [facility] Name: Arelis Marie Age: 75 yrs Sex: Female : 1945 Arrival Date: 05/26/2021 Time: 05:22 Bed 4 Private MD: Diagnosis: Calculus of kidney with calculus of ureter;Unspecified hydronephrosis Presentation: 05/26 05:39 Chief complaint: Patient states: she was seen here last Wednesday and dx with a kidney bb stone she has appt with Dr Tobin to day but the pain has gotten worse. Coronavirus screen: At this time, the client does not indicate any symptoms associated with coronavirus-19. Ebola Screen: No symptoms or risks identified at this time. Initial Sepsis Screen: Does the patient meet any 2 criteria? No. Patient's initial sepsis screen is negative. Does the patient have a suspected source of infection? No. Patient's initial sepsis screen is negative. Risk Assessment: Do you want to hurt yourself or someone else? Patient reports no desire to harm self or others. Onset of symptoms was May 26, 2021. 05:39 Method Of Arrival: Ambulatory bb 05:39 Acuity: ANY 3 bb Historical: - Allergies: 05:41 Demerol; bb - PMHx: 05:41 brain tumor, noncancerous; cholesterol; diabetes mellitus; Hypertensive disorder; bb - Immunization history:: Adult Immunizations up to date, Client reports having NOT received the Covid vaccine. - Social history:: Smoking status: Patient denies any tobacco usage or history of. Screenin:02 Abuse screen: Denies threats or abuse. Denies injuries from another. Nutritional lp1 screening: No deficits noted. Tuberculosis screening: No symptoms or risk factors identified. Fall Risk None identified. Assessment: 06:45 General: Appears uncomfortable, ill, Behavior is appropriate for age. Pain: Complains lp1 of pain in left low back Pain currently is 10 out of 10 on a pain scale. Quality of pain is described as sharp, Noted to be nausea, vomiting. Neuro: Level of Consciousness is awake, alert, obeys commands, Oriented to person, place, time, situation. Cardiovascular: Patient's skin is warm and dry. Respiratory: Respiratory effort is even, unlabored. GI: Abdomen is obese, Bowel sounds present X 4 quads. Abd is soft and non tender X 4 quads. Reports nausea. : No signs and/or symptoms were reported regarding the genitourinary system. EENT: No signs and/or symptoms were reported regarding the EENT system. Derm: Skin is intact, is thin, Skin is dry, Skin is flushed. Musculoskeletal: No deficits noted. 07:17 Reassessment: Patient appears in no apparent distress at this time. No changes from 7 previously documented assessment. Patient and/or family updated on plan of care and expected duration. Pain level reassessed. Patient is alert, oriented x 3, equal unlabored respirations, skin warm/dry/pink. Pain: Complains of pain in left low back Pain radiates to left lower quadrant Pain currently is 10 out of 10 on a pain scale. Quality of pain is described as sharp. 08:30 Reassessment: Patient appears in no apparent distress at this time. Patient and/or jl7 family updated on plan of care and expected duration. Pain level reassessed. Patient is alert, oriented x 3, equal unlabored respirations, skin warm/dry/pink. Patient denies pain at this time. Patient states feeling better. 09:30 Reassessment: Patient appears in no apparent distress at this time. No changes from 7 previously documented assessment. Patient and/or family updated on plan of care and expected duration. Pain level reassessed. Patient is alert, oriented x 3, equal unlabored respirations, skin warm/dry/pink. 10:11 Reassessment: Pt discharged, reports improvement in symptoms. 7 Vital Signs: 05:39 BP 126 / 63; Pulse 80; Resp 18 S; Temp 97.9(O); Pulse Ox 95% on R/A; Weight 99.79 kg bb (R); Height 5 ft. 8 in. (172.72 cm) (R); Pain 9/10; 07:02 BP 123 / 55; Pulse 76; Resp 18; Pulse Ox 93% on R/A; lp1 09:31 BP 106 / 64; Pulse 90; Resp 15; Pulse Ox 98% ; jl7 05:39 Body Mass Index 33.45 (99.79 kg, 172.72 cm) bb ED Course: 05:22 Patient arrived in ED. ds1 05:41 Triage completed. bb 05:41 Arm band placed on Patient placed in an exam room, on a stretcher, on pulse oximetry. bb 06:00 J[facility] F[facility]-C [facility]. kb 06:00 Mike Licea MD is Attending Physician. kb 06:21 Ekaterina Thurston, RN is Primary Nurse. lp1 06:29 CT Stone Protocol In Process Unspecified. EDMS 06:50 Inserted saline lock: 20 gauge in right wrist, using aseptic technique. Blood collected.lp1 07:00 Initial lab(s) drawn, by ED staff, sent to lab. jl7 07:01 Patient has correct armband on for positive identification. Call light in reach. Pulse lp1 ox on. NIBP on. 09:27 Basic Metabolic Panel Sent. jl7 09:27 CBC with Diff Sent. jl7 09:30 Urine collected: straight cath specimen, cloudy. jl7 10:12 No provider procedures requiring assistance completed. IV discontinued, intact, jl7 bleeding controlled, No redness/swelling at site. Pressure dressing applied. 10:25 Chest Single View XRAY In Process Unspecified. EDMS Administered Medications: 06:59 Drug: Zofran (Ondansetron) 4 mg Route: IVP; Site: right wrist; lp1 09:27 Follow up: Response: No adverse reaction jl7 06:59 Drug: morphine 4 mg Route: IVP; Site: right wrist; lp1 07:15 Follow up: Response: No adverse reaction; Pain is unchanged, physician notified jl7 07:30 Drug: Ketorolac 30 mg Route: IVP; Site: right wrist; jl7 08:00 Follow up: Response: No adverse reaction; Pain is decreased jl7 Outcome: 09:49 Discharge ordered by . kb 10:12 Discharged to home ambulatory. jl7 10:12 Condition: stable 10:12 Discharge instructions given to patient, Instructed on discharge instructions, follow up and referral plans. Demonstrated understanding of instructions, follow-up care. 10:13 Patient left the ED. jl7 Signatures: Dispatcher [employer] EDMS Jody Monge FNP-C FNP-Faustina Yu ds1 Lynda Cr RN RN bb Ekaterina Thurston, RN RN lp1 Marci Jacques RN RN jl7
--- NOTE | 2021-05-27 17:16 | EDPHYS ---
Physician Documentation [facility] Name: Arelis Marie Age: 75 yrs Sex: Female : 1945 Arrival Date: 05/26/2021 Time: 05:22 Bed 4 Private MD: ED Physician Mike Licea HPI: 05/26 09:00 This 75 yrs old Female presents to ER via Ambulatory with complaints of kb Possible Kidney Stone. 09:01 The patient complains of pain in the left flank. The pain does not radiate. Onset: The kb symptoms/episode began/occurred last night. Modifying factors: The symptoms are alleviated by nothing. the symptoms are aggravated by nothing. Associated signs and symptoms: The patient has no apparent associated signs or symptoms. Severity of pain: At its worst the pain was moderate in the emergency department the pain is unchanged. The patient has not experienced similar symptoms in the past. The patient has not recently seen a physician. 09:13 Reports left flank pain that started on Wednesday. Was seen in the ER on Wednesday discharged kb home with instructions to follow-up with Dr. Tobin. Patient was going to call Dr. Tobin office this morning but started having pain again last night. Presents this morning for increased left flank pain. Historical: - Allergies: 05:41 Demerol; bb - PMHx: 05:41 brain tumor, noncancerous; cholesterol; diabetes mellitus; Hypertensive disorder; bb - Immunization history:: Adult Immunizations up to date, Client reports having NOT received the Covid vaccine. - Social history:: Smoking status: Patient denies any tobacco usage or history of. ROS: 08:59 Constitutional: Negative for fever, chills, and weight loss. kb 08:59 Back: Positive for flank pain, on the left. 08:59 All other systems are negative. Exam: 08:59 Constitutional: This is a well developed, well nourished patient who is awake, alert, kb and in no acute distress. Head/Face: Normocephalic, atraumatic. ENT: Moist Mucous membranes Cardiovascular: Regular rate and rhythm with a normal S1 and S2. No gallops, murmurs, or rubs. No pulse deficits. Respiratory: Respirations even and unlabored. No increased work of breathing, no retractions or nasal flaring. Abdomen/GI: Soft, non-tender. No distention Skin: Warm, dry with normal turgor. Normal color. MS/ Extremity: Pulses equal, no cyanosis. Neurovascular intact. Full, normal range of motion. Neuro: Awake and alert, GCS 15, oriented to person, place, time, and situation. Moves all extremities. Normal gait. Psych: Awake, alert, with orientation to person, place and time. Behavior, mood, and affect are within normal limits. 08:59 Back: pain, that is moderate, of the left flank, ROM is normal, normal spinal alignment noted, CVA tenderness, that is moderate, is noted on the left. Vital Signs: 05:39 BP 126 / 63; Pulse 80; Resp 18 S; Temp 97.9(O); Pulse Ox 95% on R/A; Weight 99.79 kg bb (R); Height 5 ft. 8 in. (172.72 cm) (R); Pain 9/10; 07:02 BP 123 / 55; Pulse 76; Resp 18; Pulse Ox 93% on R/A; lp1 09:31 BP 106 / 64; Pulse 90; Resp 15; Pulse Ox 98% ; jl7 05:39 Body Mass Index 33.45 (99.79 kg, 172.72 cm) bb MDM: 06:01 Patient medically screened. kb 08:55 Data reviewed: vital signs, nurses notes. Data interpreted: Pulse oximetry: on room air kb is 93 %. Interpretation: acceptable. 08:58 Physician consultation: Rommel Tobin MD was called at 08:59, no answer. 09:13 Physician consultation: Rommel Tobin MD was contacted at 09:13, regarding consult, kb patient's condition, and will see patient in office, Dr. Tobin requested preop EKG chest x-ray and a urine culture to be done today during ER visit. Request that loan secretary call his office with patient information so that they can get a time for office visit for tomorrow.. 05/26 06:01 Order name: Basic Metabolic Panel 05/26 06:01 Order name: CBC with Diff 05/26 06:02 Order name: Basic Metabolic Panel; Complete Time: 07:31 EDIA 05/26 06:02 Order name: CBC with Automated Diff; Complete Time: 07:13 EDIA 05/26 09:12 Order name: Urine Culture 05/26 09:13 Order name: Urine Culture [facility] 05/26 06:01 Order name: IV Saline Lock; Complete Time: 06:59 kb 05/26 06:01 Order name: CT Stone Protocol; Complete Time: 08:19 kb 05/26 09:11 Order name: Chest Single View XRAY 05/26 09:11 Order name: EKG; Complete Time: 09:14 kb 05/26 10:07 Order name: Urine Dipstick-Ancillary [facility] 05/26 06:01 Order name: Labs collected and sent; Complete Time: 06:59 kb 05/26 09:02 Order name: Urine Dipstick-Ancillary (obtain specimen); Complete Time: 09:26 kb 05/26 09:11 Order name: EKG - Nurse/Tech; Complete Time: 09:22 kb Administered Medications: 06:59 Drug: Zofran (Ondansetron) 4 mg Route: IVP; Site: right wrist; lp1 09:27 Follow up: Response: No adverse reaction jl7 06:59 Drug: morphine 4 mg Route: IVP; Site: right wrist; lp1 07:15 Follow up: Response: No adverse reaction; Pain is unchanged, physician notified jl7 07:30 Drug: Ketorolac 30 mg Route: IVP; Site: right wrist; jl7 08:00 Follow up: Response: No adverse reaction; Pain is decreased jl7 Disposition Summary: 05/26/21 09:49 Discharge Ordered Location: Home kb Condition: Stable kb Diagnosis - Calculus of kidney with calculus of ureter kb - Unspecified hydronephrosis kb Followup: kb - With: Emergency Department - When: As needed - Reason: Worsening of condition Followup: kb - With: Private Physician - When: 2 - 3 days - Reason: Recheck today's complaints, Continuance of care, Re-evaluation by your physician Discharge Instructions: - Discharge Summary Sheet kb - Kidney Stones, [id number] kb Forms: - Medication Reconciliation Form kb - Thank You Letter kb - Antibiotic Education kb - Prescription Opioid Use kb Signatures: Dispatcher [employer] EDIA Jody Monge, FIDELC ANNALEE-Lynda Valadez, RN RN Ekaterina Patel RN RN lp1 Marci Jacques RN RN jl7
[2021-05-28 05:17] VITALS: TEMP 97.9
[2021-05-28 05:20] VITALS: BP 106/64; O2SAT 98
== END 2021-05-26 10:13 | disposition home or self-care (01) ==
LOC: ER 05:20
DX: N13.2 Hydronephrosis with renal and ureteral calculous obstruction (principal); I10 Essential (primary) hypertension; D33.2 Benign neoplasm of brain, unspecified; Z88.5 Allergy status to narcotic agent
CPT/HCPCS: 93005; 85025; 87086; 80048; 36415; 81003; 76377; 74176; 71045; J2405; 87088

== ENCOUNTER 2021-05-27 09:51 | Day surgery (SDC) | payer OTHER, BC ==
[2021-05-27] MEDS ORDERED: NA CHLORIDE 0.9% 1,000 ML ONE ×2 (12:01→16:25)
[2021-05-27] MEDS ORDERED: FENTANYL CITR 100 MCG/2 ML ONE (15:12)
[2021-05-27] MEDS ORDERED: propofoL 200 MG/20 ML VIAL IV ONE (15:12)
[2021-05-27] MEDS ORDERED: LIDOCAINE 1% MPF 5 ML VIAL ONE (15:13)
[2021-05-27] MEDS ORDERED: ONDANSETRON 4 MG/2 ML VIAL ONE ×2 (15:13→16:06)
[2021-05-27] MEDS ORDERED: MIDAZOLAM HCL 2 MG/2 ML INJ ONE (15:13)
[2021-05-27] MEDS ORDERED: CEFAZOLIN/SWI 1gm 1 GM/10 ML SYR ONE (16:02)
[2021-05-27] MEDS ORDERED: CEFAZOLIN SODIUM 1 GM/VIAL ONE (16:02)
[2021-05-27] MEDS ORDERED: CODEINE 30MG/APAP 300MG TAB PO PRN (16:34)
[2021-05-27] MEDS ORDERED: PHENAZOPYRIDINE 100MG TAB PO ONE ×3 (16:34→18:04)
[2021-05-27 16:37] VITALS: O2SAT 95
[2021-05-27 16:48] VITALS: BP 129/59; TEMP 97
--- NOTE | 2021-05-27 17:34 | OP ---
Date of Procedure: 05/27/2021 Surgeon: KAY ROACH The reason for the repeat is there was something weird that happened at the end of the prior dictatio n. I am uncertain if the dictation was appropriately recorded. Preoperative Diagnoses: 1.Left ureterolithiasis, 6 mm proximal ureter. 2.Left severe flank pain. Postoperative Diagnoses: 1.Left ureterolithiasis, 6 mm proximal ureter. 2.Left severe flank pain. 3.Left proximal ureteral stricture disease. Principle Procedures: 1.Cystoscopy. 2.Left retrograde pyelography. 3.Left ureteroscopy with laser lithotripsy and left ureteral stent placement. Indication For Procedure: Ms. Marie is a 75-year-old woman, who presented to the emergency departm ent on 2 occasions, over the weekend, and Wednesday with severe flank pain associated with the presence of a 6 mm proximal ureteral calculus. I saw her probably in the Urology Clinic where to assist her w ith management of the pain, I recommended definitive management. Because the patient lives out of [facility] and in [facility], we discussed that where I unable to definitively manage the stone today, she would need to seek definitive management locally or return for that. Today, at [facility], we would place the ureteral stent or I able to successfully manage the stone with ureteroscopy t glo, the stent would need to be removed in a time-frame determined based on the appearance intraoper atively. She understood and explained she had a urologist in fact 2 urologists in [facility] an d 1 in the [place] region where she also has a house. She felt competent. She would be able to m anage whatever the circumstance was with 1 of them if necessary. Procedure In Detail: The patient was consented in the preoperative holding area before being transfe rred to operative suite where general anesthesia was induced. She was taking ciprofloxacin antimicro bial prophylaxis and 2 g of Ancef was provided as additional IV antimicrobial prophylaxis. Pneumo silverio ots were provided for DVT prophylaxis. She was placed in the lithotomy position, padded and secured to the table appropriately. Her genitalia were prepped using Hibiclens and she was draped in standar d fashion. The case was begun using a 22-Hungarian rigid cystoscope to traverse the urethra and into [facility] bladder with ease. The bladder was decompressed and then surveyed in its entirety. No mucosal les ions, foreign bodies or stones were noted throughout. The ureteral orifices were orthotopic in locat ion and the left ureteral orifice was cannulated using the tip of the Sensor wire and a 5-Hungarian uret eral access catheter. A retrograde pyelogram was then performed. Left retrograde pyelography: Using a 70:30 mixture of Omnipaque and saline, the contrast mixture was injected via the lumen of the 5-Hungarian ureteral access catheter and did propagate up a left ureter a nd entry into the left collecting system with some delayed nephrogram suggestive of obstruction. I harry guzman passed a Sensor wire via the 5-Hungarian ureteral access catheter and observed a coil within the upp er pole before then removing the 5-Hungarian ureteral access catheter and placing a dual-lumen catheter. I then passed a second Bentson guidewire alongside the indwelling safety wire using the second lume n of the dual-lumen catheter. This was removed, and flexible ureteroscopy was then performed via the Bentson guidewire. I was able to navigate the ureteroscope into the upper pole calyx and then surve yed each of the calices in detail. I aspirated the collecting system to remove any blood products wi thin and refilled it with saline for clear visualization. The only calcification noted within each o f the calices was a linear calcification in the upper pole lateral calyx likely the displaced proxima l ureteral stone. I then utilized the laser fiber 270 nm along with a power setting of 0.8 joules an d 15 hertz to quickly fragment the stone into dust around the size of the laser fiber. Once this was completed, I then again surveyed each of the calices of the kidney, the renal pelvis, and then down via the proximal into the mid and distal ureter for any additional fragments. When no additional fra gments were noted, the ureteroscope was removed and I back-loaded the cystoscope over the indwelling safety wire. I then passed over that wire, a 6-Hungarian by 26 cm double-J ureteral stent into the left upper pole. A coil was observed fluoroscopically there and 1 cystoscopically was observed in the bl adder. Her bladder was then decompressed of fluid and urine, and she was taken out of the lithotomy position. She was then awakened from general anesthesia, transferred to a stretcher, and then transf erred to the recovery room in good condition. Complications: None. Discharge Disposition: She is recommended to keep the left ureteral stent for at least 3-4 weeks bec ause of the evidence of stricture formation in the proximal ureter due to impaction of the stone. If she will not remain here locally or return to have the stent removed at that time, I encouraged her to keep the stent for at least that period of time before having it removed by her urologist locally. LOR/NAKIA Voice ID: [id number] Report ID: [id number]
--- NOTE | 2021-05-27 17:43 | OP ---
Date of Procedure: 05/27/2021 Surgeon: KAY ROACH Preoperative Diagnoses: 1.Left ureterolithiasis, 6 mm. 2.Severe left flank pain. Postoperative Diagnoses: 1.Left ureterolithiasis, 6 mm. 2.Severe left flank pain. 3.Left proximal ureteral stricture disease. Principle Procedures: 1.Cystoscopy. 2.Left retrograde pyelography. 3.Left ureteroscopy with laser lithotripsy and stent placement. Indication For Procedure: Ms. Marie presented to the emergency department on 2 occasions over the weekend and Wednesday morning before seeing me in the Urology Clinic with a 6 mm proximal ureteral calcu portia noted causing obstruction. Because of the severity of her pain, we recommended her for urgent op erative management with at least placement of a stent, possible ureteroscopy with laser lithotripsy. She presents today for that. Procedure In Detail: The patient was consented in the preoperative holding area before being transfe rred to the operative suite where general anesthesia was induced. She was taking ciprofloxacin antim icrobial prophylaxis and we gave her an additional 2 g Ancef IV antimicrobial prophylaxis. Pneumo silverio ots were provided for DVT prophylaxis. She was placed in the lithotomy position, padded and secured to the table appropriately. Her genitalia were prepped using Hibiclens and draped in standard fashio n. The case was begun using a 22-Solomon Islander rigid cystoscope to traverse the urethra and into the bladde r. The bladder was surveyed, and no mucosal lesions, foreign bodies or stones were noted throughout. The ureteral orifices were orthotopic in location and the left ureteral orifice was cannulated usin g the tip of a 5-Solomon Islander ureteral access catheter. A retrograde pyelogram was then performed. Left retrograde pyelography: Using a 70:30 mixture of Omnipaque and saline, contrast was injected vi a the lumen of the 5-Solomon Islander ureteral access catheter and did propagate up a modestly obstructed urete r before entering the renal pelvis and calices. I then passed a Sensor wire with ease up the 5-Frenc h ureteral access catheter and the ureter before it coiled in the upper pole calyx. I then removed t he 5-Solomon Islander ureteral access catheter and over it, passed a dual-lumen catheter before passing a Bents on guidewire into the upper pole calyx alongside the indwelling safety wire. I then removed the dual -lumen catheter and passed over the Bentson guidewire, a flexible optical ureteroscope. I then surve yed each of the calices of the kidney in depth confirming each calyx had been visualized by injecting contrast via the ureteroscope and using fluoroscopy to confirm adequate visualization of each calyx. Within the upper pole lateral calyx, a linear calcification was noted likely the stone previously s een in the proximal ureter on CT. I thus employed a 275 nm laser fiber at a power setting of 0.8 eli les and 15 hertz, increased to 1 joule and 15 hertz to quickly fragment the stone into dust about the size of the laser fiber. Once this was completed, I then surveyed each of the calices of the kidney again for any fragments that may have been displaced or any other fragments previously missed. Of trev case, I aspirated the collecting system to free it of any blood and blood products as well as contrast before refilling the calices and obtaining optimal visualization. The pelvis was also surveyed befo re entry into the proximal ureter and I surveyed down the proximal into the mid and distal ureter for any additional calculi. When no additional calculi were noted, the ureteroscope was removed. I the n back-loaded the cystoscope over the indwelling safety wire and placed a 6-Solomon Islander by 26 cm double-J stent in the left ureter. A coil was observed fluoroscopically in the kidney and 1 cystoscopically i n the bladder. Her bladder was then decompressed of fluid and urine, and she was awakened from gener al anesthesia. She was then transferred to a stretcher and then to the recovery room in good conditi on. LOR/MODL Voice ID: [id number] Report ID: [id number]
--- NOTE | 2021-05-27 18:04 | RAD REPORT ---
EXAM DESCRIPTION: RAD - Urethrocystogrphy Retrograde - 05/27/2021 4:34 pm CLINICAL HISTORY: LEFT STENT PLACEMENT COMPARISON: No comparisons FINDINGS: Total fluoro time: 20 seconds
== END 2021-05-27 18:00 | disposition home or self-care (01) ==
LOC: OR 09:51
PROVIDERS: ATTEND Urology
PROC: 0T778DZ Dilation of Left Ureter with Intraluminal Device, Via Natural or Artificial Opening Endoscopic (ICD-10-PCS; 2021-05-27)
PROC: 0TF78ZZ Fragmentation in Left Ureter, Via Natural or Artificial Opening Endoscopic (ICD-10-PCS; principal; 2021-05-27 13:45)
DX: N20.1 Calculus of ureter (principal); R10.9 Unspecified abdominal pain; E11.9 Type 2 diabetes mellitus without complications; I10 Essential (primary) hypertension; J45.909 Unspecified asthma, uncomplicated; F41.9 Anxiety disorder, unspecified; Z20.822 Contact with and (suspected) exposure to COVID-19
CPT/HCPCS: 82947; 74450; 51610; 52356; U0003; J2704; J2250; J3010; J0690 ×2; J7030 ×2; J2405 ×2